=== PATIENT | female | born 1975 | race Caucasian/White ===

== ENCOUNTER 2023-06-19 23:21 | Observation (INO) | payer MEDICARE ==
[~2023-06-19 23:21] MED LIST: Sodium Chloride 0.9% 1000 ML 1,000 ML IV SCH
[2023-06-19] MEDS ORDERED: Adenocard IV 6 MG/2 ML IV ONE ×2 (23:35→23:38)
[2023-06-19] MEDS ORDERED: Sodium Chloride 0.9% 1000 ML 1,000 ML ONE (23:39)
[2023-06-19] MEDS ORDERED: Sodium Chloride 0.9% 1000 ML 1,000 ML IV SCH (23:40)
--- NOTE | 2023-06-19 23:43 | ERPHSYRPT ---
- History of Present Illness Historian: patient Exam Limitations: no limitations Patient Subjective Stated Complaint: C/O Chest pain that started approx 90 minutes prior to coming into the ER while cleaning up cat vomit at home. Triage Nursing Assessment: Patient brought back to ER in a W/C. She is alert and oriented; calm. No SOB. Rapid heart rate; SVT. Skin tone normal. Valsal. Manuever attempted with some success but SVT returned. Dr. Hand at bedside and attempted carotid massage. No edema. Physician History: , 06/19/23 11:35 PM 48 years old female past medical history of hypertension, asthma, tobacco use, seizure disorder, spina bifida. Intermittent palpitations. The patient is presenting to the emergency room complaining of central chest pain as pressure and her heart beating fast. This happened almost 90 minutes prior to arrival to the emergency room while the patient was trying to clean and a cat vomitus at home. The patient stated that this has happened couple of times in the past, when she would develop palpitations chest pain. The patient states that usually her palpitations will resolve spontaneously but not at this time. She denies any other complaint of chest pain does not radiate mostly in her chest. No lc rtness of breath, no abdominal pain nausea or vomiting. Activities at Onset: activity Quality: pressure Location: central Chest Pain Radiation: no radiation Severity of Pain-Max: mild Severity of Pain-Current: mild Modifying Factors: Improves With: nothing Associated Symptoms: palpitations Prior Chest Pain/Cardiac Workup: no prior cardiac workup Nitro Today/Relief: no nitro taken today Aspirin Treatment Today: 81 mg x 4, provided by ED Allergies/Adverse Reactions: cephalexin monohydrate [From Keflex] Allergy (Mild, Verified 06/19/23 23:23) Blisters clindamycin Allergy (Mild, Verified 06/19/23 23:23) Blisters Penicillins Allergy (Mild, Verified 06/19/23 23:23) Blisters nitrofurantoin [From Furadantin] Allergy (Verified 06/19/23 23:23) morphine Adverse Reaction (Intermediate, Verified 06/19/23 23:23) Headache Home Medications: lisinopriL [Lisinopril] 20 mg PO DAILY 09/07/14 [History] Hx Tetanus, Diphtheria Vaccination/Date Given: Yes Hx Influenza Vaccination/Date Given: No Hx Pneumococcal Vaccination/Date Given: No Immunizations Up to Date: Yes Travel Risk - International Travel Have you traveled outside of the country in past 3 weeks: No - Coronavirus Screening Are you exhibiting any of the following symptoms?: Yes Symptoms: Shortness of Breath Close contact with a COVID-19 positive Pt in past 14-21 Days: No - Vaccine Status Have you recieved a Covid-19 vaccination: Yes Sensitized Paper Tester: Moderna - Vaccination Dates Date of 2cond Vaccination (if applicable): 06/2020 - Past Medical History Pertinent Past Medical History: Yes Neurological History: Migraines, Seizures ENT History: No Pertinent History Cardiac History: Hypertension Respiratory History: Asthma Endocrine Medical History: No Pertinent History Musculoskeletal History: No Pertinent History GI Medical History: Other, Hepatitis, Cirrhosis History: Other Psycho-Social History: Depression Female Reproductive Disorders: Other Other Medical History: 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 WHICH LED TO TOTAL HYSTERECTOMY ET 10% OF STOMACHE LEFT, NEUROGENIC BLADDER ET BOWEL, SPINA BIFIDA - Past Surgical History Past Surgical History: Yes Neuro Surgical History: No Pertinent History Cardiac: No Pertinent History Respiratory: No Pertinent History Gastrointestinal: Bowel Surgery Genitourinary: Other Musculoskeletal: No Pertinent History Female Surgical History: Hysterectomy, Section Other Surgical History: tumor removal, Iliostomy, gastric bypass - Social History Smoking Status: Current every day smoker How long have you smoked: 30 years Exposure to second hand smoke: Yes Drug Use: marijuana Patient Lives Alone: No - Female History Hx Last Menstrual Period: No longer has them Hx Now: No - Nursing Vital Signs Nursing Vital Signs: Initial Vital Signs Temperature 98 F 06/19/23 23:24 Pulse Rate 172 H 06/19/23 23:24 Respiratory Rate 18 06/19/23 23:24 Blood Pressure 126/103 06/19/23 23:24 O2 Sat by Pulse Oximetry 99 06/19/23 23:24 Pain Scale Pain Intensity 0 - Physical Exam SpO2: 99 - Course Nursing assessment & vital signs reviewed: Yes EKG Interpreted by Me: RATE (174), SVT, Other (ST depressions , II, III, F, V4, V5) - Radiology Exams Chest X-ray Interpretation: Interpreted by me, Other (COPD) Ordered Tests: Active Orders 24 hr Category Date Time Status Nurse Educator STAT Care 06/19/23 23:36 Active EKG-ER Only STAT Care 06/19/23 23:35 Active IV Insertion STAT Care 06/19/23 23:35 Active CHEST 1 VIEW (PORTABLE) Stat Exams 06/19/23 23:35 Taken CHEST WITH CONTRAST [CT] Stat Exams 06/20/23 00:40 Completed CBC W DIFF Stat Lab 06/19/23 23:42 Completed CMP Stat Lab 06/19/23 23:42 Completed D-DIMER QUANTITATIVE Stat Lab 06/19/23 23:42 Completed MAGNESIUM Stat Lab 06/19/23 23:42 Completed PROTIME WITH INR Stat Lab 06/19/23 23:42 Completed PTT Stat Lab 06/19/23 23:42 Completed TROPONIN Q4H Lab 06/19/23 23:42 Completed TROPONIN Q4H Lab 06/20/23 01:53 Completed TROPONIN Q4H Lab 06/20/23 03:48 Completed TROPONIN Q4H Lab 06/20/23 06:45 Ordered TROPONIN Q4H Lab 06/20/23 10:45 Ordered TROPONIN Q4H Lab 06/20/23 14:45 Ordered TROPONIN Q4H Lab 06/20/23 18:45 Ordered TSH [TSH, 3RD Generation] Stat Lab 06/19/23 23:42 Completed Medication Summary Discontinued Medications Generic Name Dose Route Start Last Admin Trade Name Freq PRN Reason Stop Dose Admin Adenosine Confirm 06/19/23 23:35 Adenosine 6 Mg/2 Ml Vial Administered 06/19/23 23:36 Dose 18 mg IV .STK-MED ONE Adenosine 6 mg 06/19/23 23:38 06/19/23 23:40 Adenosine 6 Mg/2 Ml Vial IV 06/19/23 23:39 6 mg STAT ONE Administration Aspirin 324 mg 06/20/23 04:45 06/20/23 04:46 Aspirin 81 Mg Tab.Chew PO 06/20/23 04:46 324 mg STAT ONE Administration Aspirin Confirm 06/20/23 04:43 Aspirin 81 Mg Tab.Chew Administered 06/20/23 04:44 Dose 324 mg .ROUTE .STK-MED ONE Sodium Chloride Confirm 06/19/23 23:39 Sodium Chloride 0.9% 1000 Ml Administered 06/19/23 23:40 Dose 1,000 mls @ ud .ROUTE .STK-MED ONE Lisinopril 20 mg 06/20/23 06:01 Lisinopril 20 Mg Tablet PO 06/20/23 06:02 STAT ONE Lab/Rad Data: Laboratory Result Diagrams 06/19/23 23:42 06/19/23 23:42 Laboratory Results 06/20/23 06/20/23 06/19/23 Range/Units 03:48 01:53 23:42 WBC (4.0-10.5) x10^3/uL RBC (4.1-5.4) x10^6/uL Hgb (12.0-16.0) g/dL Hct (35-47) % MCV (78-100) fL MCH (26-32) pg MCHC (32-36) g/dL RDW (11.5-14.0) % Plt Count (150-450) x10^3/uL MPV (7.5-11.0) fL Gran % (36.0-66.0) % Immature Gran % (Auto) (0.00-0.4) % Nucleat RBC Rel Count (0.00-0.1) % Eos # (Auto) (0-0.5) x10^3/uL Immature Gran # (Auto) (0.00-0.03) x10^3u/L Absolute Lymphs (auto) (1.0-4.6) x10^3/uL Absolute Monos (auto) (0.0-1.3) x10^3/uL Absolute Nucleated RBC (0.00-0.01) x10^3u/L Lymphocytes % (24.0-44.0) % Monocytes % (0.0-12.0) % Eosinophils % (0.00-5.0) % Basophils % (0.0-0.4) % Absolute Granulocytes (1.4-6.9) x10^3/uL Basophils # (0-0.4) x10^3/uL PT (9.4-12.5) SECONDS INR (0.8-3.0) APTT (25.1-36.5) SECONDS D-Dimer (0.0-0.50) mg/L Sodium (137-145) mmol/L Potassium (3.5-5.1) mmol/L Chloride (98-107) mmol/L Carbon Dioxide (22-30) mmol/L Anion Gap (5-15) MEQ/L BUN (7-17) mg/dL Creatinine (0.52-1.04) mg/dL Estimated GFR ML/MIN Glucose (74-106) mg/dL Calcium (8.4-10.2) mg/dL Magnesium (1.6-2.3) mg/dL Total Bilirubin (0.2-1.3) mg/dL AST (14-36) U/L ALT (0-35) U/L Alkaline Phosphatase (38-126) U/L Troponin I 0.058 H* 0.039 H* (0.000-0.034) ng/mL Serum Total Protein (6.3-8.2) g/dL Albumin (3.5-5.0) g/dL TSH 3rd Generation 2.940 (0.47-4.68) mIU/L 06/19/23 06/19/23 06/19/23 Range/Units 23:42 23:42 23:42 WBC (4.0-10.5) x10^3/uL RBC (4.1-5.4) x10^6/uL Hgb (12.0-16.0) g/dL Hct (35-47) % MCV (78-100) fL MCH (26-32) pg MCHC (32-36) g/dL RDW (11.5-14.0) % Plt Count (150-450) x10^3/uL MPV (7.5-11.0) fL Gran % (36.0-66.0) % Immature Gran % (Auto) (0.00-0.4) % Nucleat RBC Rel Count (0.00-0.1) % Eos # (Auto) (0-0.5) x10^3/uL Immature Gran # (Auto) (0.00-0.03) x10^3u/L Absolute Lymphs (auto) (1.0-4.6) x10^3/uL Absolute Monos (auto) (0.0-1.3) x10^3/uL Absolute Nucleated RBC (0.00-0.01) x10^3u/L Lymphocytes % (24.0-44.0) % Monocytes % (0.0-12.0) % Eosinophils % (0.00-5.0) % Basophils % (0.0-0.4) % Absolute Granulocytes (1.4-6.9) x10^3/uL Basophils # (0-0.4) x10^3/uL PT 9.8 (9.4-12.5) SECONDS INR 0.89 (0.8-3.0) APTT 27.1 (25.1-36.5) SECONDS D-Dimer 0.56 H (0.0-0.50) mg/L Sodium 136 L (137-145) mmol/L Potassium 4.1 (3.5-5.1) mmol/L Chloride 108 H (98-107) mmol/L Carbon Dioxide 23 (22-30) mmol/L Anion Gap 10.4 (5-15) MEQ/L BUN 17 (7-17) mg/dL Creatinine 0.77 (0.52-1.04) mg/dL Estimated GFR 95.1 ML/MIN Glucose 134 H (74-106) mg/dL Calcium 9.2 (8.4-10.2) mg/dL Magnesium 2.1 (1.6-2.3) mg/dL Total Bilirubin 0.30 (0.2-1.3) mg/dL AST 60 H (14-36) U/L ALT 36 H (0-35) U/L Alkaline Phosphatase 124 (38-126) U/L Troponin I < 0.012 (0.000-0.034) ng/mL Serum Total Protein 7.6 (6.3-8.2) g/dL Albumin 4.2 (3.5-5.0) g/dL TSH 3rd Generation (0.47-4.68) mIU/L 06/19/23 Range/Units 23:42 WBC 10.4 (4.0-10.5) x10^3/uL RBC 4.98 (4.1-5.4) x10^6/uL Hgb 12.2 (12.0-16.0) g/dL Hct 41.5 (35-47) % MCV 83.3 (78-100) fL MCH 24.5 L (26-32) pg MCHC 29.4 L (32-36) g/dL RDW 16.4 H (11.5-14.0) % Plt Count 360 (150-450) x10^3/uL MPV 8.9 (7.5-11.0) fL Gran % 64.4 (36.0-66.0) % Immature Gran % (Auto) 0.3 (0.00-0.4) % Nucleat RBC Rel Count 0.0 (0.00-0.1) % Eos # (Auto) 0.16 (0-0.5) x10^3/uL Immature Gran # (Auto) 0.03 (0.00-0.03) x10^3u/L Absolute Lymphs (auto) 2.42 (1.0-4.6) x10^3/uL Absolute Monos (auto) 1.04 (0.0-1.3) x10^3/uL Absolute Nucleated RBC 0.00 (0.00-0.01) x10^3u/L Lymphocytes % 23.2 L (24.0-44.0) % Monocytes % 10.0 (0.0-12.0) % Eosinophils % 1.5 (0.00-5.0) % Basophils % 0.6 (0.0-0.4) % Absolute Granulocytes 6.71 (1.4-6.9) x10^3/uL Basophils # 0.06 (0-0.4) x10^3/uL PT (9.4-12.5) SECONDS INR (0.8-3.0) APTT (25.1-36.5) SECONDS D-Dimer (0.0-0.50) mg/L Sodium (137-145) mmol/L Potassium (3.5-5.1) mmol/L Chloride (98-107) mmol/L Carbon Dioxide (22-30) mmol/L Anion Gap (5-15) MEQ/L BUN (7-17) mg/dL Creatinine (0.52-1.04) mg/dL Estimated GFR ML/MIN Glucose (74-106) mg/dL Calcium (8.4-10.2) mg/dL Magnesium (1.6-2.3) mg/dL Total Bilirubin (0.2-1.3) mg/dL AST (14-36) U/L ALT (0-35) U/L Alkaline Phosphatase (38-126) U/L Troponin I (0.000-0.034) ng/mL Serum Total Protein (6.3-8.2) g/dL Albumin (3.5-5.0) g/dL TSH 3rd Generation (0.47-4.68) mIU/L - Progress Progress: improved Progress Note: 06/19/23 23:35 Emergency room course and medical decision making. The patient had an EKG on arrival which revealed SVT at a rate of [address] depressions in the inferior and lateral leads. Will check CBC, CMP, magnesium, portable chest x-ray and TSH. Will try to attempt to slow the patient heart rate with vagal maneuver, Valsalva maneuver, both did not seem to resolve her palpitations. The patient will be given a trial of IV Adenosine. 11:40 PM The patient verbally consented to the IV Adenosine, and she is aware that this medication with probably stop her heart and slow it down back to sinus rhythm. 6 mg of IV adenosine followed by 0.9 saline bolus was given. The patient's heart rate went down from 174 bpm to 103 sinus tachycardia. The patient felt better immediately. EKG post procedure revealed sinus tachycardia 103 bpm she had some minimal ST depression in the inferior leads and lat 06/20/23 00:40 The patient is asleep not in any distress, her heart rate is in the upper 80s to mid 90s sinus rhythm. Troponin less than 0.012. D-dimer mildly elevated 0.56. Normal TSH at 2.9 Normal potassium at 4.1 normal magnesium at 2.1. Will order CT of the chest rule out PE. Repeat troponin in 3 hours. 2:45 AM The patient is sleeping, have repeated second troponin is up to 0.039. Will repeat a third troponin 2 hours from the second 1. 06/20/23 04:46 The patient's third troponin is higher at 0.058. Her EKG is sinus rhythm 80 bpm, no ST segment elevation or depression. Will consult with cardiology in regard to the troponin elevation. The patient be given 4 baby aspirin's. The case is discussed with the garden center manager, Dr. Mcgrath, his recommendation is to have the patient be admitted to our facility for further observation. The case will be discussed with the hospitalist. 06/20/23 06:05 The case is discussed with the hospitalist, Dr. Hernandez and the patient has been accepted. She will be admitted for SVT Elevated Troponin. Observation Telemetry. 06/20/23 06:[address] Other (Dr. Mcgrath. Cardiology) Counseled pt/family regarding: lab results, diagnosis, rad results, smoking cessation - Departure Departure Disposition: Observation Clinical Impression: SVT (supraventricular tachycardia), Chest pain, Elevated troponin level Condition: Stable Critical Care Time: Yes Critical Care Time(excluding separately billable procedures): Critical 75-104 mins Referrals: JULI MONAHAN MD [Primary Care Provider] - Follow up/PCP as directed
[2023-06-19 23:45] LABS: Absolute Neutrophil Ct (ANC) 6.71 x10^3/uL (1.4-6.9); BASOPHIL % 0.6 % (0.0-0.4); Basophil (Absolute #) 0.06 x10^3/uL (0-0.4); Eosinophil % 1.5 % (0.00-5.0); Eosinophil (Absolute #) 0.16 x10^3/uL (0-0.5); Hematocrit 41.5 % (35-47); Hemoglobin 12.2 g/dL (12.0-16.0); IMMATURE GRAN # 0.03 x10^3u/L (0.00-0.03); IMMATURE GRAN % 0.3 % (0.00-0.4); Lymphocyte (Absolute #) 2.42 x10^3/uL (1.0-4.6); Lymphocytes % 23.2 % (24.0-44.0); Mean Cell Volume 83.3 fL (78-100); Mean Corpuscular Hemoglobin 24.5 pg (26-32); Mean Corpuscular Hgb Concent. 29.4 g/dL (32-36); Mean Platelet Volume 8.9 fL (7.5-11.0); Monocyte (Absolute #) 1.04 x10^3/uL (0.0-1.3); Neutrophil % 64.4 % (36.0-66.0); Platelet Count 360 x10^3/uL (150-450); Red Blood Count 4.98 x10^6/uL (4.1-5.4); Red Cell Distribution Width 16.4 % (11.5-14.0); White Blood Count 10.4 x10^3/uL (4.0-10.5)
[2023-06-20 00:01] LABS: ALBUMIN 4.2 g/dL (3.5-5.0); ANION GAP 10.4 MEQ/L (5-15); BILIRUBIN,TOTAL 0.3 mg/dL (0.2-1.3); Calcium 9.2 mg/dL (8.4-10.2); Creatinine 1 0.77 mg/dL (0.52-1.04); D-DIMER QUANTITATIVE 0.56 mg/L (0.0-0.50); EST GLOMERULAR FILTRATION RATE 95.1 ML/MIN; INR 0.89 (0.8-3.0); MAGNESIUM 2.1 mg/dL (1.6-2.3); PROTIME 9.8 SECONDS (9.4-12.5); PTT 27.1 SECONDS (25.1-36.5); Potassium 4.1 mmol/L (3.5-5.1); Total Protein 7.6 g/dL (6.3-8.2)
--- NOTE | 2023-06-20 01:37 | XRAY ---
CLINICAL HISTORY:PE COMPARISON:None TECHNIQUE:Contiguous axial images were obtained from the neck base through the upper abdomen following intravenous administration of contrast material. If IV contrast material had not been administered, the likelihood of detecting abnormalities relevant to the patient's condition would have been substantially decreased. In addition, sagittal and coronal reconstructions were performed. CT scan was performed according to ALARA (as low as reasonable achievable). ? FINDINGS: The lungs are clear, with no focal areas of consolidation. No pulmonary nodules are seen. The central airways are patent. There are no pleural effusions. No pneumothorax is seen. No axillary, hilar, or mediastinal adenopathy is identified. The visualized thyroid is unremarkable. The heart, aorta, and pulmonary arteries are of normal size and configuration. No filling defect or embolism. No pericardial effusion is identified. Imaged portions of the upper abdomen are unremarkable. No aggressive appearing osseous lesions are identified. IMPRESSION: 1. No evidence of pulmonary embolism or pulmonary disease. Electronically Signed by: Dr. Freeman Fisher MD. (06/20/2023 01:33:03 EST)
[2023-06-20] MEDS ORDERED: BABY ASPIRIN 81 MG CHEW ONE (04:43)
[2023-06-20] MEDS ORDERED: BABY ASPIRIN 81 MG CHEW PO ONE (04:45)
[2023-06-20] MEDS ORDERED: Zestril 20 MG PO ONE (06:01)
--- NOTE | 2023-06-20 08:44 | XRAY ---
Indication: Chest pain. Comparison: March 09, 2016 Portable chest again hyperinflated and clear. Heart not enlarged. Bony thorax intact. No new/acute findings.
--- NOTE | 2023-06-20 09:34 | PCM.HP ---
<RAGHAVENDRA JANG - Last Filed: 06/20/23 13:30> History of Present Illness - Chief Complaint Chief Complaint: SVT Date: 06/20/23 History of Present Illness: is a 48 year old female with a pmhx of HTN, asthma, smoker, hypothyroidism, emphysema, and spina bifida(ileostomy/presented to ED 06/20/23 with complaints of palpitations and "racing heartbeat." Patient reports she was in her usual state of health until last night around 900 pm when she noticed her heart felt like it was racing. She had been cleaning prior and tried to rest but the racing sensation persisted and prompted her to present to ED. She denies CP but endorses some jaw pain and headache. Patient also reports burning her right buttock with heating pad. She states the wound has some drainage. Upon inspection wound is quarter-sized, no exudate noted, and minimal erythema surrounding. Patient does self-cath and has ileostomy. Denies fever,cough, sob, cp, abdominal pain, HOLT, dizziness, N/V/D. In ED, patient afebrile, tachycardic with HR 172, normotensive, and spo2 @99% on RA. Chest CT with no evidence of PE or pulmonary disease. Initial EKG demonstrating SVT at a rate of [address] depressions in the inferior and lateral leads. Valsalva maneuver was attempted and unsuccessful, Adenosine given and converted to NS. Labs unremarkable with the exception of uptrending troponins 0.062<0.058<0.039. - Review of Systems Constitutional: No Symptoms Eyes: No Symptoms Ears, Nose, & Throat: No Symptoms Respiratory: No Symptoms Cardiac: Palpitations, Other ("racing heart") Abdominal/Gastrointestinal: No Symptoms, Other (ileostomy) Genitourinary Symptoms: No Symptoms, Other (Patient self-caths) Musculoskeletal: No Symptoms Skin: Other (quarter sized wound to right buttock) Neurological: Other (numbness/tingling due to spina bifida) Psychological: No Symptoms Endocrine: No Symptoms Hematologic/Lymphatic: No Symptoms Immunological/Allergic: No Symptoms Medications & Allergies Home Medications: Home Medication List lisinopriL [Lisinopril] 20 mg PO DAILY 09/07/14 [History Confirmed 06/20/23] Allergies/Adverse Reactions: Allergies Allergy/AdvReac Type Severity Reaction Status Date / Time cephalexin monohydrate Allergy Mild Blisters Verified 06/19/23 23:23 [From Keflex] clindamycin Allergy Mild Blisters Verified 06/19/23 23:23 Penicillins Allergy Mild Blisters Verified 06/19/23 23:23 nitrofurantoin Allergy Verified 06/19/23 23:23 [From Furadantin] morphine AdvReac Intermediate Headache Verified 06/19/23 23:23 - Past Medical History Past Medical History: Yes Neurological History: Migraines, Seizures ENT History: No Pertinent History Cardiac History: Hypertension Respiratory History: Asthma Endocrine Medical History: No Pertinent History Musculoskelatal History: No Pertinent History GI Medical History: Other, Hepatitis, Cirrhosis History: Other Pyscho-Social History: Depression Reproductive Disorders: Other Comment: 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 WHICH LED TO TOTAL HYSTERECTOMY ET 10% OF STOMACHE LEFT, NEUROGENIC BLADDER ET BOWEL, SPINA BIFIDA - Female History Hx Last Menstrual Period: No longer has them Are you now?: No - Past Surgical History Past Surgical History: Yes Neuro Surgical History: No Pertinent History Cardiac History: No Pertinent History Respiratory Surgery: No Pertinent History GI Surgical History: Bowel Surgery Genitourinary Surgical Hx: Other Musculskeletal Surgical Hx: No Pertinent History Female Surgical History: Hysterectomy, Section Other Surgical History: tumor removal, Iliostomy, gastric bypass - Social History Smoking Status: Current every day smoker How long have you smoked: 30 years Exposure to second hand smoke: Yes Alcohol: None Drug Use: marijuana - Physical Exam Vital Signs: Vital Signs - 24 hr Temp Pulse Resp BP BP Pulse Ox 06/20/23 08:30 97.1 F 82 18 168/91 97 06/20/23 08:25 97.1 F 97 H 18 168/91 97 06/20/23 08:00 77 18 141/95 96 06/20/23 07:45 73 20 190/106 96 06/20/23 07:30 91 H 15 163/100 97 06/20/23 07:15 76 18 153/98 96 06/20/23 07:00 76 20 150/93 96 06/20/23 06:45 75 20 166/97 97 06/20/23 06:30 74 21 154/109 96 06/20/23 06:15 85 18 164/101 97 06/20/23 06:12 99 06/20/23 06:01 73 11 L 172/101 100 06/20/23 05:45 76 20 144/102 100 06/20/23 05:31 78 11 L 146/99 99 06/20/23 05:15 81 24 128/81 99 06/20/23 05:00 77 14 140/97 06/20/23 04:45 81 11 L 163/105 100 06/20/23 04:30 72 15 133/98 99 06/20/23 04:15 71 20 145/89 06/20/23 04:06 71 14 155/93 100 06/20/23 03:45 79 19 152/100 100 06/20/23 03:30 73 16 140/99 100 06/20/23 03:15 73 21 146/94 97 06/20/23 03:00 101 H 15 140/99 99 06/20/23 02:45 73 18 144/99 98 06/20/23 02:30 78 19 126/76 96 06/20/23 02:15 83 19 109/75 96 06/20/23 02:00 83 19 115/74 96 06/20/23 01:45 83 18 124/84 97 06/20/23 01:30 83 20 127/86 97 06/20/23 01:15 88 21 125/79 96 06/20/23 01:08 89 22 126/83 97 06/20/23 00:45 127/95 06/20/23 00:30 99 H 22 125/96 96 06/20/23 00:15 98 H 20 128/95 96 06/20/23 00:00 99 H 22 128/96 95 06/19/23 23:44 100 H 20 148/101 97 06/19/23 23:39 179 H 17 146/101 100 06/19/23 23:24 98 F 172 H 18 126/103 99 General Appearance: no apparent distress Neurologic Exam: alert, oriented x 3, cooperative Eye Exam: PERRL/EOMI Ears, Nose, Throat Exam: normal ENT inspection Neck Exam: normal inspection Respiratory Exam: normal breath sounds, lungs clear Cardiovascular Exam: regular rate/rhythm, normal heart sounds Gastrointestinal/Abdomen Exam: soft, normal bowel sounds Pelvic Exam: not done Rectal Exam: deferred Back Exam: normal inspection Extremity Exam: normal inspection Skin Exam: other (quarter sized wound with surrounding erythema) Results - Labs Lab/Micro Results: Lab Results-Last 24 Hours 06/19/23 06/19/23 06/19/23 Range/Units 23:42 23:42 23:42 WBC 10.4 (4.0-10.5) x10^3/uL RBC 4.98 (4.1-5.4) x10^6/uL Hgb 12.2 (12.0-16.0) g/dL Hct 41.5 (35-47) % MCV 83.3 (78-100) fL MCH 24.5 L (26-32) pg MCHC 29.4 L (32-36) g/dL RDW 16.4 H (11.5-14.0) % Plt Count 360 (150-450) x10^3/uL MPV 8.9 (7.5-11.0) fL Gran % 64.4 (36.0-66.0) % Immature Gran % (Auto) 0.3 (0.00-0.4) % Nucleat RBC Rel Count 0.0 (0.00-0.1) % Eos # (Auto) 0.16 (0-0.5) x10^3/uL Immature Gran # (Auto) 0.03 (0.00-0.03) x10^3u/L Absolute Lymphs (auto) 2.42 (1.0-4.6) x10^3/uL Absolute Monos (auto) 1.04 (0.0-1.3) x10^3/uL Absolute Nucleated RBC 0.00 (0.00-0.01) x10^3u/L Lymphocytes % 23.2 L (24.0-44.0) % Monocytes % 10.0 (0.0-12.0) % Eosinophils % 1.5 (0.00-5.0) % Basophils % 0.6 (0.0-0.4) % Absolute Granulocytes 6.71 (1.4-6.9) x10^3/uL Basophils # 0.06 (0-0.4) x10^3/uL PT 9.8 (9.4-12.5) SECONDS INR 0.89 (0.8-3.0) APTT 27.1 (25.1-36.5) SECONDS D-Dimer 0.56 H (0.0-0.50) mg/L Sodium 136 L (137-145) mmol/L Potassium 4.1 (3.5-5.1) mmol/L Chloride 108 H (98-107) mmol/L Carbon Dioxide 23 (22-30) mmol/L Anion Gap 10.4 (5-15) MEQ/L BUN 17 (7-17) mg/dL Creatinine 0.77 (0.52-1.04) mg/dL Estimated GFR 95.1 ML/MIN Glucose 134 H (74-106) mg/dL Calcium 9.2 (8.4-10.2) mg/dL Magnesium 2.1 (1.6-2.3) mg/dL Total Bilirubin 0.30 (0.2-1.3) mg/dL AST 60 H (14-36) U/L ALT 36 H (0-35) U/L Alkaline Phosphatase 124 (38-126) U/L Troponin I (0.000-0.034) ng/mL Serum Total Protein 7.6 (6.3-8.2) g/dL Albumin 4.2 (3.5-5.0) g/dL TSH 3rd Generation (0.47-4.68) mIU/L 06/19/23 06/19/23 06/20/23 Range/Units 23:42 23:42 01:53 WBC (4.0-10.5) x10^3/uL RBC (4.1-5.4) x10^6/uL Hgb (12.0-16.0) g/dL Hct (35-47) % MCV (78-100) fL MCH (26-32) pg MCHC (32-36) g/dL RDW (11.5-14.0) % Plt Count (150-450) x10^3/uL MPV (7.5-11.0) fL Gran % (36.0-66.0) % Immature Gran % (Auto) (0.00-0.4) % Nucleat RBC Rel Count (0.00-0.1) % Eos # (Auto) (0-0.5) x10^3/uL Immature Gran # (Auto) (0.00-0.03) x10^3u/L Absolute Lymphs (auto) (1.0-4.6) x10^3/uL Absolute Monos (auto) (0.0-1.3) x10^3/uL Absolute Nucleated RBC (0.00-0.01) x10^3u/L Lymphocytes % (24.0-44.0) % Monocytes % (0.0-12.0) % Eosinophils % (0.00-5.0) % Basophils % (0.0-0.4) % Absolute Granulocytes (1.4-6.9) x10^3/uL Basophils # (0-0.4) x10^3/uL PT (9.4-12.5) SECONDS INR (0.8-3.0) APTT (25.1-36.5) SECONDS D-Dimer (0.0-0.50) mg/L Sodium (137-145) mmol/L Potassium (3.5-5.1) mmol/L Chloride (98-107) mmol/L Carbon Dioxide (22-30) mmol/L Anion Gap (5-15) MEQ/L BUN (7-17) mg/dL Creatinine (0.52-1.04) mg/dL Estimated GFR ML/MIN Glucose (74-106) mg/dL Calcium (8.4-10.2) mg/dL Magnesium (1.6-2.3) mg/dL Total Bilirubin (0.2-1.3) mg/dL AST (14-36) U/L ALT (0-35) U/L Alkaline Phosphatase (38-126) U/L Troponin I < 0.012 0.039 H* (0.000-0.034) ng/mL Serum Total Protein (6.3-8.2) g/dL Albumin (3.5-5.0) g/dL TSH 3rd Generation 2.940 (0.47-4.68) mIU/L 06/20/23 06/20/23 Range/Units 03:48 06:49 WBC (4.0-10.5) x10^3/uL RBC (4.1-5.4) x10^6/uL Hgb (12.0-16.0) g/dL Hct (35-47) % MCV (78-100) fL MCH (26-32) pg MCHC (32-36) g/dL RDW (11.5-14.0) % Plt Count (150-450) x10^3/uL MPV (7.5-11.0) fL Gran % (36.0-66.0) % Immature Gran % (Auto) (0.00-0.4) % Nucleat RBC Rel Count (0.00-0.1) % Eos # (Auto) (0-0.5) x10^3/uL Immature Gran # (Auto) (0.00-0.03) x10^3u/L Absolute Lymphs (auto) (1.0-4.6) x10^3/uL Absolute Monos (auto) (0.0-1.3) x10^3/uL Absolute Nucleated RBC (0.00-0.01) x10^3u/L Lymphocytes % (24.0-44.0) % Monocytes % (0.0-12.0) % Eosinophils % (0.00-5.0) % Basophils % (0.0-0.4) % Absolute Granulocytes (1.4-6.9) x10^3/uL Basophils # (0-0.4) x10^3/uL PT (9.4-12.5) SECONDS INR (0.8-3.0) APTT (25.1-36.5) SECONDS D-Dimer (0.0-0.50) mg/L Sodium (137-145) mmol/L Potassium (3.5-5.1) mmol/L Chloride (98-107) mmol/L Carbon Dioxide (22-30) mmol/L Anion Gap (5-15) MEQ/L BUN (7-17) mg/dL Creatinine (0.52-1.04) mg/dL Estimated GFR ML/MIN Glucose (74-106) mg/dL Calcium (8.4-10.2) mg/dL Magnesium (1.6-2.3) mg/dL Total Bilirubin (0.2-1.3) mg/dL AST (14-36) U/L ALT (0-35) U/L Alkaline Phosphatase (38-126) U/L Troponin I 0.058 H* 0.062 H* (0.000-0.034) ng/mL Serum Total Protein (6.3-8.2) g/dL Albumin (3.5-5.0) g/dL TSH 3rd Generation (0.47-4.68) mIU/L - Radiology Impressions Radiology Exams & Impressions: Radiology Procedures Category Date Time Status CHEST 1 VIEW (PORTABLE) Stat Exams 06/19/23 23:35 Completed CHEST WITH CONTRAST [CT] Stat Exams 06/20/23 00:40 Completed - Other Procedures and Tests Respiratory Therapy 06/20/23 09:11 Smoking Cessation Education ONCE 06/20/23 09:27 EKG ROUTINE Assessment/Plan (1) SVT (supraventricular tachycardia) Status: Acute Assessment & Plan: -EKG on arrival showing SVT, adenosine give with resolution, current EKG with NS -Cardiology to see patient today -TSH wnl Code(s): I47.10 - SUPRAVENTRICULAR TACHYCARDIA, UNSPECIFIED (2) Elevated troponin level Status: Acute Assessment & Plan: -Most likely secondary to SVT -EKG now NS no ST elevations/depressions, anterior infarct age indeterminate, p vcs -Cards consulted pending recs Code(s): R79.89 - OTHER SPECIFIED ABNORMAL FINDINGS OF BLOOD CHEMISTRY (3) Hypothyroid Status: Acute Assessment & Plan: -Patient states she is non-compliant with synthroid, TSH level WNL here, advised follow up with PCP Code(s): E03.9 - HYPOTHYROIDISM, UNSPECIFIED (4) Spina bifida Status: Acute Assessment & Plan: -Noted, adds complexity. With ileostomy, able to ambulate -Noted burn due to heating pad and loss of sensation to affected area Code(s): Q05.9 - SPINA BIFIDA, UNSPECIFIED (5) Hypertension Status: Acute Assessment & Plan: -Stable, continue home med lisinopril Code(s): I10 - ESSENTIAL (PRIMARY) HYPERTENSION (6) Wound of right buttock Status: Acute Assessment & Plan: 2/2 to burn from heating pad, patient states she has no sensation to this area -wound culture -Will treat with doxycycline/augmentin -patient does have allergy to PCN but states she is able to tolerate Augmentin Code(s): S31.819A - UNSPECIFIED OPEN WOUND OF RIGHT BUTTOCK, INITIAL ENCOUNTER <JEFF PERES - Last Filed: 06/20/23 21:21> History of Present Illness - Chief Complaint History of Present Illness: is a 48 year old female. - Physical Exam Vital Signs: Vital Signs - 24 hr Temp Pulse Resp BP BP Pulse Ox 06/20/23 16:00 97.3 F 78 17 146/97 99 06/20/23 12:00 97.3 F 92 H 16 152/86 97 06/20/23 09:39 92 H 16 97 06/20/23 08:30 97.1 F 82 18 168/91 97 06/20/23 08:25 97.1 F 97 H 18 168/91 97 06/20/23 08:00 77 18 141/95 96 06/20/23 07:45 73 20 190/106 96 06/20/23 07:30 91 H 15 163/100 97 06/20/23 07:15 76 18 153/98 96 06/20/23 07:00 76 20 150/93 96 06/20/23 06:45 75 20 166/97 97 06/20/23 06:30 74 21 154/109 96 06/20/23 06:15 85 18 164/101 97 06/20/23 06:12 99 06/20/23 06:01 73 11 L 172/101 100 06/20/23 05:45 76 20 144/102 100 06/20/23 05:31 78 11 L 146/99 99 06/20/23 05:15 81 24 128/81 99 06/20/23 05:00 77 14 140/97 06/20/23 04:45 81 11 L 163/105 100 06/20/23 04:30 72 15 133/98 99 06/20/23 04:15 71 20 145/89 06/20/23 04:06 71 14 155/93 100 06/20/23 03:45 79 19 152/100 100 06/20/23 03:30 73 16 140/99 100 06/20/23 03:15 73 21 146/94 97 06/20/23 03:00 101 H 15 140/99 99 06/20/23 02:45 73 18 144/99 98 06/20/23 02:30 78 19 126/76 96 06/20/23 02:15 83 19 109/75 96 06/20/23 02:00 83 19 115/74 96 06/20/23 01:45 83 18 124/84 97 06/20/23 01:30 83 20 127/86 97 06/20/23 01:15 88 21 125/79 96 06/20/23 01:08 89 22 126/83 97 06/20/23 00:45 127/95 06/20/23 00:30 99 H 22 125/96 96 06/20/23 00:15 98 H 20 128/95 96 06/20/23 00:00 99 H 22 128/96 95 06/19/23 23:44 100 H 20 148/101 97 06/19/23 23:39 179 H 17 146/101 100 06/19/23 23:24 98 F 172 H 18 126/103 99 Results - Labs Lab/Micro Results: Lab Results-Last 24 Hours 06/19/23 06/19/23 06/19/23 Range/Units 23:42 23:42 23:42 WBC 10.4 (4.0-10.5) x10^3/uL RBC 4.98 (4.1-5.4) x10^6/uL Hgb 12.2 (12.0-16.0) g/dL Hct 41.5 (35-47) % MCV 83.3 (78-100) fL MCH 24.5 L (26-32) pg MCHC 29.4 L (32-36) g/dL RDW 16.4 H (11.5-14.0) % Plt Count 360 (150-450) x10^3/uL MPV 8.9 (7.5-11.0) fL Gran % 64.4 (36.0-66.0) % Immature Gran % (Auto) 0.3 (0.00-0.4) % Nucleat RBC Rel Count 0.0 (0.00-0.1) % Eos # (Auto) 0.16 (0-0.5) x10^3/uL Immature Gran # (Auto) 0.03 (0.00-0.03) x10^3u/L Absolute Lymphs (auto) 2.42 (1.0-4.6) x10^3/uL Absolute Monos (auto) 1.04 (0.0-1.3) x10^3/uL Absolute Nucleated RBC 0.00 (0.00-0.01) x10^3u/L Lymphocytes % 23.2 L (24.0-44.0) % Monocytes % 10.0 (0.0-12.0) % Eosinophils % 1.5 (0.00-5.0) % Basophils % 0.6 (0.0-0.4) % Absolute Granulocytes 6.71 (1.4-6.9) x10^3/uL Basophils # 0.06 (0-0.4) x10^3/uL PT 9.8 (9.4-12.5) SECONDS INR 0.89 (0.8-3.0) APTT 27.1 (25.1-36.5) SECONDS D-Dimer 0.56 H (0.0-0.50) mg/L Sodium 136 L (137-145) mmol/L Potassium 4.1 (3.5-5.1) mmol/L Chloride 108 H (98-107) mmol/L Carbon Dioxide 23 (22-30) mmol/L Anion Gap 10.4 (5-15) MEQ/L BUN 17 (7-17) mg/dL Creatinine 0.77 (0.52-1.04) mg/dL Estimated GFR 95.1 ML/MIN Glucose 134 H (74-106) mg/dL Calcium 9.2 (8.4-10.2) mg/dL Magnesium 2.1 (1.6-2.3) mg/dL Total Bilirubin 0.30 (0.2-1.3) mg/dL AST 60 H (14-36) U/L ALT 36 H (0-35) U/L Alkaline Phosphatase 124 (38-126) U/L Troponin I (0.000-0.034) ng/mL Serum Total Protein 7.6 (6.3-8.2) g/dL Albumin 4.2 (3.5-5.0) g/dL TSH 3rd Generation (0.47-4.68) mIU/L 06/19/23 06/19/23 06/20/23 Range/Units 23:42 23:42 01:53 WBC (4.0-10.5) x10^3/uL RBC (4.1-5.4) x10^6/uL Hgb (12.0-16.0) g/dL Hct (35-47) % MCV (78-100) fL MCH (26-32) pg MCHC (32-36) g/dL RDW (11.5-14.0) % Plt Count (150-450) x10^3/uL MPV (7.5-11.0) fL Gran % (36.0-66.0) % Immature Gran % (Auto) (0.00-0.4) % Nucleat RBC Rel Count (0.00-0.1) % Eos # (Auto) (0-0.5) x10^3/uL Immature Gran # (Auto) (0.00-0.03) x10^3u/L Absolute Lymphs (auto) (1.0-4.6) x10^3/uL Absolute Monos (auto) (0.0-1.3) x10^3/uL Absolute Nucleated RBC (0.00-0.01) x10^3u/L Lymphocytes % (24.0-44.0) % Monocytes % (0.0-12.0) % Eosinophils % (0.00-5.0) % Basophils % (0.0-0.4) % Absolute Granulocytes (1.4-6.9) x10^3/uL Basophils # (0-0.4) x10^3/uL PT (9.4-12.5) SECONDS INR (0.8-3.0) APTT (25.1-36.5) SECONDS D-Dimer (0.0-0.50) mg/L Sodium (137-145) mmol/L Potassium (3.5-5.1) mmol/L Chloride (98-107) mmol/L Carbon Dioxide (22-30) mmol/L Anion Gap (5-15) MEQ/L BUN (7-17) mg/dL Creatinine (0.52-1.04) mg/dL Estimated GFR ML/MIN Glucose (74-106) mg/dL Calcium (8.4-10.2) mg/dL Magnesium (1.6-2.3) mg/dL Total Bilirubin (0.2-1.3) mg/dL AST (14-36) U/L ALT (0-35) U/L Alkaline Phosphatase (38-126) U/L Troponin I < 0.012 0.039 H* (0.000-0.034) ng/mL Serum Total Protein (6.3-8.2) g/dL Albumin (3.5-5.0) g/dL TSH 3rd Generation 2.940 (0.47-4.68) mIU/L 06/20/23 06/20/23 06/20/23 Range/Units 03:48 06:49 10:45 WBC (4.0-10.5) x10^3/uL RBC (4.1-5.4) x10^6/uL Hgb (12.0-16.0) g/dL Hct (35-47) % MCV (78-100) fL MCH (26-32) pg MCHC (32-36) g/dL RDW (11.5-14.0) % Plt Count (150-450) x10^3/uL MPV (7.5-11.0) fL Gran % (36.0-66.0) % Immature Gran % (Auto) (0.00-0.4) % Nucleat RBC Rel Count (0.00-0.1) % Eos # (Auto) (0-0.5) x10^3/uL Immature Gran # (Auto) (0.00-0.03) x10^3u/L Absolute Lymphs (auto) (1.0-4.6) x10^3/uL Absolute Monos (auto) (0.0-1.3) x10^3/uL Absolute Nucleated RBC (0.00-0.01) x10^3u/L Lymphocytes % (24.0-44.0) % Monocytes % (0.0-12.0) % Eosinophils % (0.00-5.0) % Basophils % (0.0-0.4) % Absolute Granulocytes (1.4-6.9) x10^3/uL Basophils # (0-0.4) x10^3/uL PT (9.4-12.5) SECONDS INR (0.8-3.0) APTT (25.1-36.5) SECONDS D-Dimer (0.0-0.50) mg/L Sodium (137-145) mmol/L Potassium (3.5-5.1) mmol/L Chloride (98-107) mmol/L Carbon Dioxide (22-30) mmol/L Anion Gap (5-15) MEQ/L BUN (7-17) mg/dL Creatinine (0.52-1.04) mg/dL Estimated GFR ML/MIN Glucose (74-106) mg/dL Calcium (8.4-10.2) mg/dL Magnesium (1.6-2.3) mg/dL Total Bilirubin (0.2-1.3) mg/dL AST (14-36) U/L ALT (0-35) U/L Alkaline Phosphatase (38-126) U/L Troponin I 0.058 H* 0.062 H* 0.051 H* (0.000-0.034) ng/mL Serum Total Protein (6.3-8.2) g/dL Albumin (3.5-5.0) g/dL TSH 3rd Generation (0.47-4.68) mIU/L 06/20/23 Range/Units 15:04 WBC (4.0-10.5) x10^3/uL RBC (4.1-5.4) x10^6/uL Hgb (12.0-16.0) g/dL Hct (35-47) % MCV (78-100) fL MCH (26-32) pg MCHC (32-36) g/dL RDW (11.5-14.0) % Plt Count (150-450) x10^3/uL MPV (7.5-11.0) fL Gran % (36.0-66.0) % Immature Gran % (Auto) (0.00-0.4) % Nucleat RBC Rel Count (0.00-0.1) % Eos # (Auto) (0-0.5) x10^3/uL Immature Gran # (Auto) (0.00-0.03) x10^3u/L Absolute Lymphs (auto) (1.0-4.6) x10^3/uL Absolute Monos (auto) (0.0-1.3) x10^3/uL Absolute Nucleated RBC (0.00-0.01) x10^3u/L Lymphocytes % (24.0-44.0) % Monocytes % (0.0-12.0) % Eosinophils % (0.00-5.0) % Basophils % (0.0-0.4) % Absolute Granulocytes (1.4-6.9) x10^3/uL Basophils # (0-0.4) x10^3/uL PT (9.4-12.5) SECONDS INR (0.8-3.0) APTT (25.1-36.5) SECONDS D-Dimer (0.0-0.50) mg/L Sodium (137-145) mmol/L Potassium (3.5-5.1) mmol/L Chloride (98-107) mmol/L Carbon Dioxide (22-30) mmol/L Anion Gap (5-15) MEQ/L BUN (7-17) mg/dL Creatinine (0.52-1.04) mg/dL Estimated GFR ML/MIN Glucose (74-106) mg/dL Calcium (8.4-10.2) mg/dL Magnesium (1.6-2.3) mg/dL Total Bilirubin (0.2-1.3) mg/dL AST (14-36) U/L ALT (0-35) U/L Alkaline Phosphatase (38-126) U/L Troponin I 0.037 H* (0.000-0.034) ng/mL Serum Total Protein (6.3-8.2) g/dL Albumin (3.5-5.0) g/dL TSH 3rd Generation (0.47-4.68) mIU/L - Radiology Impressions Radiology Exams & Impressions: Radiology Procedures Category Date Time Status CHEST 1 VIEW (PORTABLE) Stat Exams 06/19/23 23:35 Completed CHEST WITH CONTRAST [CT] Stat Exams 06/20/23 00:40 Completed ECHO W/2D AND DOPPLER [US] Routine Exams 06/20/23 11:52 Taken TA Encounter - TA Encounter Attestation TA Encounter Attestation: "JessicapersonallyseenandIZZY Tuttle andhavediscussed pertinent aspects of their care with Raghavendra Cardenas agree with the history, physical exam (any modifications based on my personal exam will be noted below), assessment, and plan as outlined in original note. Please see immediately below for my summary of findings and additional assessment and plan along with any meaningful corrections/explanations to the Subjective/Objective portions of the TA note will be noted." My portion of the encounter took place via telemedicine. -Patient seen today for SVT and positive trop. She was feeling well this morning however left AMA in the evening, pending cardiology evaluation
[2023-06-20] MEDS ORDERED: TYLENOL 325 MG PO PRN (09:39)
[2023-06-20] MEDS ORDERED: Zofran 4 MG/2 ML VIAL IV PRN (09:40)
[2023-06-20] MEDS ORDERED: ENOXAPARIN SODIUM SQ SCH (10:00)
[2023-06-20] MEDS ORDERED: Zestril 20 MG PO SCH (10:00)
[2023-06-20] MEDS ORDERED: Nicoderm CQ 21 MG TOP SCH (10:00)
[2023-06-20 13:06] VITALS: TEMP 97.3
[2023-06-20] MEDS ORDERED: Augmentin 875-125 Tablet PO SCH (14:00)
[2023-06-20] MEDS ORDERED: Vibramycin 100 MG PO SCH (14:00)
[2023-06-20 16:22] VITALS: BP 146/97; PULSE 78; RESP 17; O2SAT 99
[2023-06-20] MEDS ORDERED: SILVADENE 50 GM TP SCH (22:00)
== END 2023-06-20 18:00 | disposition left against medical advice (07) ==
LOC: ED 23:21 → MED SURG 06-20 08:21
PROVIDERS: ADMIT Internal Medicine; ATTEND Internal Medicine
DX: I47.10 Supraventricular tachycardia, unspecified (principal); R79.89 Other specified abnormal findings of blood chemistry; E03.9 Hypothyroidism, unspecified; Q05.9 Spina bifida, unspecified; I10 Essential (primary) hypertension; S31.819A Unspecified open wound of right buttock, initial encounter; F17.200 Nicotine dependence, unspecified, uncomplicated; Z79.899 Other long term (current) drug therapy; Z20.828 Contact with and (suspected) exposure to other viral communicable diseases
CPT/HCPCS: 36000; 36415; 71045; 71260; 80053; 83735; 84443; 84484; 85025; 85379; 85610; 85730; 93005; 93041; 93268; 93306; 96374; 99285; 99291; 99292; J0153; J1650; Q3014; A9270-GY; G0378

== ENCOUNTER 2024-02-12 01:29 | Observation (INO) | payer MEDICARE ==
[2024-02-12] MEDS ORDERED: Zofran 4 MG/2 ML VIAL ONE (02:41)
[2024-02-12] MEDS: Zofran 4 MG/2 ML VIAL IV ONE (02:42)
[2024-02-12] MEDS ORDERED: SUBLIMAZE 100 MCG/2 ML ONE (02:42)
[2024-02-12] MEDS ORDERED: Sodium Chloride 0.9% 1000 ML 1,000 ML ONE (02:42)
--- NOTE | 2024-02-12 02:42 | ERPHSYRPT ---
- History of Present Illness Time Seen by Provider: 02/12/24 02:26 Patient Subjective Stated Complaint: pt states that she thinks she has a uti. pt states she self cath Triage Nursing Assessment: pt came into the er via wheelchair; pt transfer self to cot; pt states 10/10 pain to abd; hypoactive bowel sounds in all quads; iliostomy to RLQ; skin PDW; no respiratory distress present; vitals wnl Physician History: 48 years old female with history of hypertension, seizure disorder, asthma/tobacco abuse, multiple abdominal surgeries with permanent ileostomy, spinal biopsy Presented in the ER with complaints of generalized abdominal pain more in the right side around the area of ileostomy for the last 2 to 3 days with progressive worsening. Reports no ileostomy diarrhea. Reports decreased oral intake, loss of appetite and 15 pounds weight loss in last 2 weeks which is not intentional. Having aches and pains all over. Minimal nonproductive cough at times. Denies any chest pain or palpitations. No fever or chills reported. Allergies/Adverse Reactions: cephalexin monohydrate [From Keflex] Allergy (Mild, Verified 02/12/24 07:07) Blisters clindamycin Allergy (Mild, Verified 02/12/24 07:07) Blisters Penicillins Allergy (Mild, Verified 02/12/24 07:07) Blisters nitrofurantoin [From Furadantin] Allergy (Verified 02/12/24 07:07) morphine Adverse Reaction (Intermediate, Verified 02/12/24 07:07) Headache Home Medications: lisinopriL [Lisinopril] 10 mg PO DAILY 09/07/14 [History] Ciprofloxacin HCl 500 mg PO BID 02/12/24 [History] Hydroxyzine HCl 25 mg [Atarax 25 mg] 25 mg PO Q8HPRN PRN 02/12/24 [History] Nitroglycerin 0.4 mg Tablet [Nitrostat 0.4 MG Tablet] 0.4 mg SL Q5MIN PRN MR X 3 PRN 02/12/24 [History] Hx Tetanus, Diphtheria Vaccination/Date Given: Yes Hx Influenza Vaccination/Date Given: No Hx Pneumococcal Vaccination/Date Given: No Travel Risk - International Travel Have you traveled outside of the country in past 3 weeks: No - Emerging Infectious Disease Are you exhibiting symptoms associated with any current EIDs: Yes Symptoms: Abdominal Pain - Review of Systems Constitutional: Fatigue, Weakness Eyes: No Symptoms Ears, Nose, & Throat: No Symptoms Respiratory: Cough Cardiac: No Symptoms Abdominal/Gastrointestinal: Abdominal Pain, Nausea Genitourinary Symptoms: No Symptoms Musculoskeletal: Arthralgias Skin: No Symptoms Neurological: No Symptoms Endocrine: No Symptoms Hematologic/Lymphatic: No Symptoms - Past Medical History Pertinent Past Medical History: Yes Neurological History: Migraines, Seizures ENT History: No Pertinent History Cardiac History: Hypertension Respiratory History: Asthma Endocrine Medical History: No Pertinent History Musculoskeletal History: No Pertinent History GI Medical History: Other, Hepatitis, Cirrhosis History: Other Psycho-Social History: Depression Female Reproductive Disorders: Other Other Medical History: 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 WHICH LED TO TOTAL HYSTERECTOMY ET 10% OF STOMACHE LEFT, NEUROGENIC BLADDER ET BOWEL, SPINA BIFIDA - Past Surgical History Past Surgical History: Yes Neuro Surgical History: No Pertinent History Cardiac: No Pertinent History Respiratory: No Pertinent History Gastrointestinal: Bowel Surgery Genitourinary: Other Musculoskeletal: No Pertinent History Female Surgical History: Hysterectomy, Section Other Surgical History: tumor removal, Iliostomy, gastric bypass - Female History Hx Last Menstrual Period: HYSTER Hx Now: No - Social History Smoking Status: Current every day smoker How long have you smoked: 30 years Exposure to second hand smoke: Yes Drug Use: marijuana Patient Lives Alone: No - Social Determinants of Health Will the patient participate in the screening: Yes Do you worry about a steady place to live?: No Do you have any problems with any of the following?: No known problems In the past 12 months,have you had to go without utilities?: No Transportation Issues: No Has anyone in your support network made you feel unsafe?: No Have you or anyone in your house had to go without enough: No - Nursing Vital Signs Nursing Vital Signs: Initial Vital Signs Blood Pressure 111/74 02/12/24 01:39 Pain Scale Pain Intensity 2 - Physical Exam General Appearance: no apparent distress, alert Eye Exam: PERRL/EOMI Ears, Nose, Throat Exam: normal ENT inspection (Attending) Neck Exam: normal inspection, supple, full range of motion Respiratory Exam: normal breath sounds, lungs clear Cardiovascular Exam: regular rate/rhythm, normal heart sounds (Follow-up pending. 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 Skin Exam: normal color SpO2 Interpretation: normal SpO2: 100 O2 Delivery: Room Air - Course EKG Interpreted by Me: RATE (82), Sinus Rhythm, NORMAL AXIS, Q-wave, Non- specific ST Changes Ordered Tests: Medication Summary Generic Name Dose Route Start Last Admin Trade Name Freq PRN Reason Stop Dose Admin Acetaminophen 325 mg 02/12/24 07:53 02/12/24 10:21 Acetaminophen 325 Mg Tablet PO 03/13/24 07:52 325 mg Q4H PRN PRN Administration PAIN, FEVER, HEADACHE Albuterol/Ipratropium 3 ml 02/12/24 14:44 Ipratropium/Albuterol Sulfate 3 Ml Ampul.Neb IH 03/13/24 14:43 Q4HPRN PRN SHORTNESS OF BREATH/WHEEZING Diphenoxylate HCl/Atropine 2 tablet 02/12/24 13:00 02/13/24 13:45 Diphenoxylate Hcl/Atropine 1 Tablet PO 03/13/24 12:59 2 tablet QID MAREK Administration Heparin Sodium (Beef Lung) 5,000 unit 02/12/24 10:00 02/13/24 10:07 Heparin 5000 Units/0.5 Ml 5,000 Unit/0.5 Ml Syr SQ 03/13/24 09:59 5,000 unit BID MAREK Administration Hydromorphone HCl 1 mg 02/12/24 11:02 02/13/24 09:58 Hydromorphone 1 Mg/1ml Inj IV 02/17/24 11:01 1 mg Q4H PRN PRN Administration PAIN Hydroxyzine HCl 25 mg 02/12/24 07:55 Hydroxyzine Hcl 25 Mg Tablet PO 03/13/24 07:54 Q8HPRN PRN ANXIETY Aztreonam 1 gm/ Sodium 100 mls @ 200 mls/hr 02/12/24 18:00 02/13/24 05:52 Chloride IV 02/15/24 17:59 200 mls/hr Q12H MAREK Administration Lactated Ringer's 1,000 mls @ 100 mls/hr 02/12/24 08:00 02/13/24 13:46 Lactated Ringers IV 03/13/24 07:59 100 mls/hr .Q10H MAREK Administration Ondansetron HCl 4 mg 02/12/24 07:49 02/12/24 10:54 Ondansetron Hcl 4 Mg/2 Ml Vial IV 03/13/24 07:48 4 mg Q6H PRN PRN Administration NAUSEA/VOMITING Pantoprazole Sodium 40 mg 02/12/24 10:00 02/13/24 10:07 Protonix (Pantoprazole) 40 Mg Tablet PO 03/13/24 09:59 40 mg DAILY MAREK Administration Discontinued Medications Generic Name Dose Route Start Last Admin Trade Name Freq PRN Reason Stop Dose Admin Albuterol/Ipratropium 3 ml 02/12/24 08:00 02/13/24 04:58 Ipratropium/Albuterol Sulfate 3 Ml Ampul.Neb IH 03/13/24 07:59 Not Given Q6HRT MAREK Aztreonam Confirm 02/12/24 05:16 Aztreonam 1 Gm Vial Administered 02/12/24 05:17 Dose 1 gm .ROUTE .STK-MED ONE Fentanyl Citrate 50 mcg 02/12/24 02:37 02/12/24 02:43 Fentanyl Citrate 100 Mcg/2 Ml* Vial IV 02/12/24 02:38 50 mcg STAT ONE Administration Fentanyl Citrate Confirm 02/12/24 02:42 Fentanyl Citrate 100 Mcg/2 Ml* Vial Administered 02/12/24 02:43 Dose 100 mcg .ROUTE .STK-MED ONE Sodium Chloride 1,000 mls @ 999 mls/hr 02/12/24 02:37 02/12/24 04:11 Sodium Chloride 0.9% 1000 Ml IV 02/12/24 03:37 Infused .Q1H1M STA Infusion Sodium Chloride Confirm 02/12/24 02:42 Sodium Chloride 0.9% 1000 Ml Administered 02/12/24 02:43 Dose 1,000 mls @ ud .ROUTE .STK-MED ONE Aztreonam 1 gm/ Sodium 100 mls @ 200 mls/hr 02/12/24 10:00 02/12/24 05:24 Chloride IV 02/15/24 09:59 200 mls/hr Q12HT MAREK Administration Sodium Chloride 1,000 mls @ 100 mls/hr 02/12/24 05:15 02/12/24 07:22 Sodium Chloride 0.9% 1000 Ml IV 03/13/24 05:14 100 mls/hr .Q10H MAREK Administration Sodium Chloride 500 mls @ 500 mls/hr 02/12/24 05:11 02/12/24 05:26 Sodium Chloride 0.9% 500 Ml IV 02/12/24 06:10 500 mls/hr .Q1H ONE Administration Sodium Chloride Confirm 02/12/24 05:18 Sodium Chloride 0.9% Administered 02/12/24 05:19 Dose 100 mls @ ud .ROUTE .STK-MED ONE Sodium Chloride Confirm 02/12/24 05:25 Sodium Chloride 100ml Mini-Bag Plus Administered 02/12/24 05:26 Dose 100 mls @ ud IV .STK-MED ONE Sodium Chloride Confirm 02/12/24 05:26 Sodium Chloride 0.9% 500 Ml Administered 02/12/24 05:27 Dose 500 mls @ ud IV .STK-MED ONE Ondansetron HCl 4 mg 02/12/24 02:37 02/12/24 02:42 Ondansetron Hcl 4 Mg/2 Ml Vial IV 02/12/24 02:38 4 mg STAT ONE Administration Ondansetron HCl Confirm 02/12/24 02:41 Ondansetron Hcl 4 Mg/2 Ml Vial Administered 02/12/24 02:42 Dose 4 mg .ROUTE .STK-MED ONE Potassium Chloride 20 meq 02/12/24 08:00 02/12/24 16:20 Potassium Chloride Tab 10 Meq Tab PO 02/12/24 14:01 20 meq Q2H MAREK Administration Lab/Rad Data: Laboratory Result Diagrams 02/12/24 02:52 02/12/24 02:52 Laboratory Results 02/12/24 02/12/24 02/12/24 Range/Units 03:20 02:52 02:52 WBC (3.98-10.04) x10^3/uL RBC (3.93-5.22) x10^6/uL Hgb (11.2-15.7) g/dL Hct (34.1-44.9) % MCV (79.4-94.8) fL MCH (25.6-32.2) pg MCHC (32.2-35.5) g/dL RDW (11.7-14.4) % Plt Count (182-369) x10^3/uL MPV (9.4-12.3) fL Gran % (34.0-71.1) % Immature Gran % (Auto) (0.001-0.429) % Nucleat RBC Rel Count (0.00-0.2) % Eos # (Auto) (0.04-0.36) x10^3/uL Immature Gran # (Auto) (0.001-0.031) x10^3u/L Absolute Lymphs (auto) (1.18-3.74) x10^3/uL Absolute Monos (auto) (0.24-0.86) x10^3/uL Absolute Nucleated RBC (0.00-0.012) x10^3u/L Lymphocytes % (19.3-51.7) % Monocytes % (4.7-12.5) % Eosinophils % (0.7-5.8) % Basophils % (0.1-1.2) % Absolute Granulocytes (1.56-6.13) x10^3/uL Basophils # (0.01-0.08) x10^3/uL Sodium (135-145) mmol/L Potassium (3.5-5.1) mmol/L Chloride (98-107) mmol/L Carbon Dioxide (22-30) mmol/L Anion Gap (5-15) MEQ/L BUN (7-17) mg/dL Creatinine (0.52-1.04) mg/dL Estimated GFR ML/MIN Glucose (74-106) mg/dL Lactic Acid 0.8 (0.4-2.0) Calcium (8.4-10.2) mg/dL Total Bilirubin (0.2-1.3) mg/dL AST (14-36) U/L ALT (0-35) U/L Alkaline Phosphatase (38-126) U/L Troponin I < 0.012 (0.000-0.033) ng/mL Serum Total Protein (6.3-8.2) g/dL Albumin (3.5-5.0) g/dL Lipase (23-300) U/L Urine Color Dark Yellow A (Yellow) Urine Appearance Cloudy A (Clear) Urine pH 5.5 (4.6-8.0) Ur Specific [place] 1.020 (1.005-1.030) Urine Protein 300 A (Negative) Urine Glucose (UA) Negative (Negative) mg/dL Urine Ketones Trace A (Negative) Urine Blood Small A (Negative) Urine Nitrite Positive A (Negative) Urine Bilirubin Negative (Negative) Urine Urobilinogen 1.0 A (0.2) mg/dL Ur Leukocyte Esterase Small A (Negative) U Hyaline Cast (Auto) 6-10 A (0-2) /LPF Urine Microscopic RBC 0-2 (0-5) /HPF Urine Microscopic WBC 21-50 A (0-5) /HPF Ur Epithelial Cells Many A (None Seen) /HPF Urine Bacteria Many A (None Seen) /HPF Urine Culture Reflexed YES (NO) 02/12/24 02/12/24 Range/Units 02:52 02:52 WBC 4.6 (3.98-10.04) x10^3/uL RBC 4.41 (3.93-5.22) x10^6/uL Hgb 9.5 L (11.2-15.7) g/dL Hct 32.2 L (34.1-44.9) % MCV 73.0 L (79.4-94.8) fL MCH 21.5 L (25.6-32.2) pg MCHC 29.5 L (32.2-35.5) g/dL RDW 19.1 H (11.7-14.4) % Plt Count 309 (182-369) x10^3/uL MPV 9.1 L (9.4-12.3) fL Gran % 66.4 (34.0-71.1) % Immature Gran % (Auto) 0.4 (0.001-0.429) % Nucleat RBC Rel Count 0.0 (0.00-0.2) % Eos # (Auto) 0.02 L (0.04-0.36) x10^3/uL Immature Gran # (Auto) 0.02 (0.001-0.031) x10^3u/L Absolute Lymphs (auto) 0.96 L (1.18-3.74) x10^3/uL Absolute Monos (auto) 0.53 (0.24-0.86) x10^3/uL Absolute Nucleated RBC 0.00 (0.00-0.012) x10^3u/L Lymphocytes % 21.0 (19.3-51.7) % Monocytes % 11.6 (4.7-12.5) % Eosinophils % 0.4 L (0.7-5.8) % Basophils % 0.2 (0.1-1.2) % Absolute Granulocytes 3.04 (1.56-6.13) x10^3/uL Basophils # 0.01 (0.01-0.08) x10^3/uL Sodium 134 L (135-145) mmol/L Potassium 3.3 L (3.5-5.1) mmol/L Chloride 102 (98-107) mmol/L Carbon Dioxide 18 L (22-30) mmol/L Anion Gap 17.6 H (5-15) MEQ/L BUN 46 H (7-17) mg/dL Creatinine 3.66 H (0.52-1.04) mg/dL Estimated GFR 14.7 ML/MIN Glucose 72 L (74-106) mg/dL Lactic Acid (0.4-2.0) Calcium 8.7 (8.4-10.2) mg/dL Total Bilirubin 0.20 (0.2-1.3) mg/dL AST 40 H (14-36) U/L ALT 38 H (0-35) U/L Alkaline Phosphatase 90 (38-126) U/L Troponin I (0.000-0.033) ng/mL Serum Total Protein 6.3 (6.3-8.2) g/dL Albumin 3.6 (3.5-5.0) g/dL Lipase 53 (23-300) U/L Urine Color (Yellow) Urine Appearance (Clear) Urine pH (4.6-8.0) Ur Specific [place] (1.005-1.030) Urine Protein (Negative) Urine Glucose (UA) (Negative) mg/dL Urine Ketones (Negative) Urine Blood (Negative) Urine Nitrite (Negative) Urine Bilirubin (Negative) Urine Urobilinogen (0.2) mg/dL Ur Leukocyte Esterase (Negative) U Hyaline Cast (Auto) (0-2) /LPF Urine Microscopic RBC (0-5) /HPF Urine Microscopic WBC (0-5) /HPF Ur Epithelial Cells (None Seen) /HPF Urine Bacteria (None Seen) /HPF Urine Culture Reflexed (NO) - Progress Progress: improved, re-examined Progress Note: 02/12/24 05:12 48 years old is evaluated in the ER with generalized abdominal pain more on the right side with decreased oral intake along with fatigue and tiredness. Patient is given fluids and symptomatic treatment for pain. EKG is normal sinus with no ST elevations and negative initial troponins. Has normal white count. Hemoglobin of 9.5 which is a little below the baseline but patient denies any dark stool, hematemesis and hematochezia. Has acute renal failure with a creatinine baseline around 0.7 and today is 3.6. Bicarb of 18 and a potassium of 3.3. She does have UTI with positive nitrites. Given a dose of aztreonam as patient is allergic to multiple other antibiotics. I have obtained CT abdomen pelvis without contrast which is negative for any acute intraabdominal/pelvic obstruction, no ureteral stones or obstructive uropathy but does have some fluid in right paracolic gutter area. Patient is hurting. Abdominal exam after fentanyl is nonsurgical. I have shared the results of workup with patient and family and recommended admission which they agreed. Discussed with Dr. Vang and patient is accepted for admission. Discussed with DrManny: Other Counseled pt/family regarding: lab results, diagnosis, need for follow-up, rad results Medical Desision Making - Independent Historian Additional History obtained from: Spouse - Discussion of managment Care discussed with:: hospitalist (Dr. Vang hospitalist) Reviewed:: Test results Agreed on:: Treatment plan, place in obs Will see patient: in hospital - Diagnostic Testing Diagnostic test were ordered, analyzed, and reviewed by me: Yes Radiological Interpretation: Reviewed by me, Teleradiologist Report - Risk of complications The pt has a mod risk of morbidity or mortality based on: Need for prescription drug management The pt has a high risk of morbidity or mortality based on: Decision regarding hospitilization or escalation of hosp level of care - Departure Departure Disposition: Observation Clinical Impression: Acute UTI (urinary tract infection), Right sided abdominal pain, Dehydration Acute renal failure (ARF) Qualifiers: Acute renal failure type: unspecified Qualified Code(s): N17.9 - Acute kidney failure, unspecified Condition: Stable Critical Care Time: No
[2024-02-12] MEDS: Sodium Chloride 0.9% 1000 ML 1,000 ML IV STA (02:43)
[2024-02-12] MEDS: SUBLIMAZE 100 MCG/2 ML IV ONE (02:43)
[2024-02-12 02:55] LABS: Absolute Neutrophil Ct (ANC) 3.04 x10^3/uL (1.56-6.13); BASOPHIL % 0.2 % (0.1-1.2); Basophil (Absolute #) 0.01 x10^3/uL (0.01-0.08); Eosinophil % 0.4 % (0.7-5.8); Eosinophil (Absolute #) 0.02 x10^3/uL (0.04-0.36); Hematocrit 32.2 % (34.1-44.9); Hemoglobin 9.5 g/dL (11.2-15.7); IMMATURE GRAN # 0.02 x10^3u/L (0.001-0.031); IMMATURE GRAN % 0.4 % (0.001-0.429); Lymphocyte (Absolute #) 0.96 x10^3/uL (1.18-3.74); Mean Corpuscular Hemoglobin 21.5 pg (25.6-32.2); Mean Corpuscular Hgb Concent. 29.5 g/dL (32.2-35.5); Mean Platelet Volume 9.1 fL (9.4-12.3); Monocyte (Absolute #) 0.53 x10^3/uL (0.24-0.86); Monocytes % 11.6 % (4.7-12.5); Neutrophil % 66.4 % (34.0-71.1); Platelet Count 309 x10^3/uL (182-369); Red Blood Count 4.41 x10^6/uL (3.93-5.22); Red Cell Distribution Width 19.1 % (11.7-14.4); White Blood Count 4.6 x10^3/uL (3.98-10.04)
[2024-02-12 03:06] LABS: Appearance Cloudy (Clear); Bacteria Many /HPF (None Seen); Bilirubin Negative (Negative); Blood Small (Negative); Epithelial Cells Many /HPF (None Seen); Glucose, Urine Negative (Negative); Ketones Trace (Negative); Leukocyte Esterase Small (Negative); Nitrite Positive (Negative); Ph 5.5 (4.6-8.0); Protein,Urine Dip 300 (Negative); RBC 0-2 /HPF (0-5); WBC 21-50 /HPF (0-5)
[2024-02-12 03:08] LABS: ADD URINE CULTURE? YES (NO); ALBUMIN 3.6 g/dL (3.5-5.0); ANION GAP 17.6 MEQ/L (5-15); BILIRUBIN,TOTAL 0.2 mg/dL (0.2-1.3); Calcium 8.7 mg/dL (8.4-10.2); Creatinine 1 3.66 mg/dL (0.52-1.04); EST GLOMERULAR FILTRATION RATE 14.7 ML/MIN; Potassium 3.3 mmol/L (3.5-5.1); Total Protein 6.3 g/dL (6.3-8.2)
--- NOTE | 2024-02-12 04:05 | XRAY ---
CLINICAL HISTORY: abd pain COMPARISON: None. TECHNIQUE: CT scan of the abdomen and pelvis without intravenous contrast administration. One of the following dose reduction techniques was utilized for this exam: Automated exposure control, adjustment of the mA and/or kV according to patient size, and use of iterative reconstruction. FINDINGS: Status postoperative with evidence of right iliac colostomy. The liver is of average size with a prominent Reidle's lobe, shows regular contour and homogeneous texture with no focal lesion could be detected on non-contrast basis. No intra hepatic biliary radical dilatation. The GB is surgically removed. The spleen is of average size and shape with homogeneous parenchyma and no focal lesion could be noted on non-contrast basis. Both kidneys are of normal size, shape and parenchymal thickness with no stones, back pressure changes or space occupying lesions on non-contrast basis. The other retroperitoneal structures including the pancreas and adrenal glands are grossly within normal limits. The small and large bowels cannot be assessed due to the lack of oral contrast material. Yet, no signs of acute obstruction. No significant lymph elizabeth enlargement. Perihepatic and right paracolic gutter fluid collection is noted. The appendix is not visualized. The uterus is not visualized. No adenxal solid or cystic lesions. Atherosclerotic calcification of the aorta and its branches. Inadequate filling of the urinary bladder with no stones, masses, or diverticula. Bone window settings showed the sacrum to be hypoplastic and the coccyx is missing. Degenerative changes of the lumbar spine and reduced osseous mineralization are noted. Marked calcified granulomas noted in right gluteal region, likely injection granulomas. Few similar granulomas also seen in left gluteal region. Lung window settings showed normal appearance of both basal lung segments. IMPRESSION: 1. Postoperative status. Correlation with surgical history is advised. 2. Right paracolic gutter and perihepatic fliud collection is noted. 3. Inadequate assessment of the bowel loops. Further evaluation by CT with oral and IV contrast is advised. 4. Partial sacral agenesis (caudal regression syndrome). Electronically Signed by: Marla Alvares MD. (02/12/2024 04:02:03 EDT)
[2024-02-12] MEDS ORDERED: AZACTAM 1 GM ONE (05:16)
[2024-02-12] MEDS ORDERED: Sodium Chloride 0.9% 0 ML ONE (05:18)
[2024-02-12] MEDS: AZACTAM 1 GM*** 1 GM in Sodium Chloride 100ML MINI-BAG PLUS 100 ML IV SCH ×2 (05:24→16:44)
[2024-02-12] MEDS ORDERED: Sodium Chloride 100ML MINI-BAG PLUS 100 ML IV ONE (05:25)
[2024-02-12] MEDS: Sodium Chloride 0.9% 500 ML 500 ML IV ONE (05:26)
[2024-02-12] MEDS ORDERED: Sodium Chloride 0.9% 500 ML 500 ML IV ONE (05:26)
[2024-02-12] MEDS: Sodium Chloride 0.9% 1000 ML 1,000 ML IV SCH (07:22)
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
[2024-02-12] MEDS ORDERED: ATARAX 25 MG PO PRN (07:55)
[2024-02-12] MEDS: Lactated Ringers 1,000 ML IV SCH (08:44)
[2024-02-12] MEDS: Klor Con PO SCH (08:45)
[2024-02-12] MEDS: TYLENOL 325 MG PO PRN (10:21)
[2024-02-12] MEDS: Protonix 40MG Tablet PO SCH (10:21)
[2024-02-12] MEDS: HEPARIN 5000 UNITS/0.5 ML (HIGH RISK MED) SQ SCH (10:22)
[2024-02-12] MEDS: Zofran 4 MG/2 ML VIAL IV PRN (10:54)
[2024-02-12] MEDS: Lomotil PO SCH (12:43)
[2024-02-12] MEDS: Hydromorphone 1 mg/ml Injection IV PRN (12:44)
[2024-02-12] MEDS: DUONEB 0.5-3 MG/3 ml Neb IH SCH (13:39)
[2024-02-12] MEDS ORDERED: DUONEB 0.5-3 MG/3 ml Neb IH PRN (14:44)
--- NOTE | 2024-02-13 05:21 | PCM.NOTE ---
Date and Time: 02/13/24 05 Subjective Assessment: HPI: Ms. HARKINS is a 48 year old female with a past medical history significant for hypertension, seizures, multiple abdominal surgeries with h/o bowel obstruction status post ileostomy, morbid obesity status post bariatric surgery, asthma and neurogenic bladder requiring self caths -> recurrent UTIs admitted 02/12/24 with UTI and MICHEL. Upon arrival labs were notable for an elevated creatinine of 3.66. In review of her records, it appears that her baseline is 0.77 from June 2023. She does take Lisinopril for usual bp meds. CT abdomen showing right paracolic gutter and perihepatic fliud collection is noted. Partial sacral ageneisis. Surgery consulted regarding fluid collection - no need for intervention. Ileostomy with increased output - surgery started lomotil. Patient is feeling much improved today. Continues to endorse right flank pain. Ucult with NGTD. Creat greatly improved today 1.39<3.66. Plan to continue IVF and abx. Will repeat CT tomorrow if pain is persisting. - Review of Systems Constitutional: No Symptoms Eyes: No Symptoms Ears, Nose, & Throat: No Symptoms Respiratory: No Symptoms Cardiac: No Symptoms Abdominal/Gastrointestinal: Other (right flank pain ) Genitourinary Symptoms: No Symptoms Musculoskeletal: No Symptoms Skin: No Symptoms Neurological: No Symptoms Psychological: No Symptoms Endocrine: No Symptoms Objective Exam General Appearance: no apparent distress Neurologic Exam: alert, oriented x 3, cooperative Skin Exam: normal color Eye Exam: PERRL Ears, Nose, Throat Exam: normal ENT inspection Neck Exam: normal inspection Respiratory Exam: normal breath sounds, lungs clear Cardiovascular Exam: regular rate/rhythm, normal heart sounds Gastrointestinal/Abdomen Exam: soft, normal bowel sounds, other (ileostomy) Extremity Exam: normal inspection Back Exam: normal inspection Pelvic Exam: deferred Rectal Exam: deferred Objective Data Vital Signs: Vital Signs - 24 hr Temp Pulse Resp BP BP Pulse Ox 02/13/24 04:00 97.5 F 71 18 126/75 100 02/13/24 00:00 97.2 F 71 16 123/74 96 02/12/24 20:00 97.9 F 74 16 100/60 99 02/12/24 19:22 77 16 95 02/12/24 16:00 98.0 F 68 18 160/88 98 02/12/24 15:54 73 16 97 02/12/24 11:28 97.9 F 70 20 155/86 98 02/12/24 07:54 97.8 F 72 18 133/96 100 02/12/24 06:31 97.8 F 72 18 133/96 100 02/12/24 06:00 77 121/82 98 02/12/24 05:30 74 128/82 98 02/12/24 05:17 100 Pain Assessment - Last Documented Pain Intensity 5 Pain Scale Used 0-10 Pain Scale Intake and Output: Intake & Output 02/10/24 02/11/24 02/12/24 02/13/24 11:59 11:59 11:59 11:59 Intake Total 240 3490 Output Total 650 Balance 240 2840 Weight 50.4 kg Lab Results: Lab Results-Last 24 Hours 02/12/24 02/12/24 02/12/24 Range/Units 06:35 06:40 11:15 Potassium (3.5-5.1) mmol/L Magnesium 2.0 (1.6-2.3) mg/dL Troponin I < 0.012 < 0.012 (0.000-0.033) ng/mL Procalcitonin (0.030-0.080) ng/mL 02/12/24 02/12/24 Range/Units 18:25 Unknown Potassium 4.5 D (3.5-5.1) mmol/L Magnesium (1.6-2.3) mg/dL Troponin I (0.000-0.033) ng/mL Procalcitonin 1.800 H (0.030-0.080) ng/mL Radiology Exams: Radiology Procedures Category Date Time Status ABDOMEN AND PELVIS W/0 CONTRAS [CT] Stat Exams 02/12/24 02:37 Completed Assessment/Plan (1) Acute UTI (urinary tract infection) Current Visit: Yes Status: Acute Assessment & Plan: -H/o spina bifida- self caths at home -UA suspicious for UTI, will start empiric Azactam due to mult allergies- follow cultures -consider repeat CT tomorrow if no improvement in flank pain Code(s): N39.0 - URINARY TRACT INFECTION, SITE NOT SPECIFIED (2) Acute renal failure (ARF) Current Visit: Yes Status: Acute Qualifiers: Acute renal failure type: unspecified Qualified Code(s): N17.9 - Acute kidney failure, unspecified Assessment & Plan: -Avoid CARL/ARB/NSAIDS -Monitor renal/lytes daily -IVF -Hold home lisinopril -improved 1.39<3.66 (3) Neurogenic bladder Current Visit: Yes Status: Acute Assessment & Plan: -Self -caths - continue Code(s): N31.9 - NEUROMUSCULAR DYSFUNCTION OF BLADDER, UNSPECIFIED (4) Hypertension Current Visit: No Status: Acute Qualifiers: Hypertension type: primary hypertension Qualified Code(s): I10 - Essential (primary) hypertension Assessment & Plan: -Hold lisinopril -monitor BP - consider CCB or BB if needed Code(s): I10 - ESSENTIAL (PRIMARY) HYPERTENSION (5) Spina bifida Current Visit: No Status: Acute Assessment & Plan: -Noted, adds complexity, continue home self-cath regimen Code(s): Q05.9 - SPINA BIFIDA, UNSPECIFIED
[2024-02-13 05:32] LABS: Absolute Neutrophil Ct (ANC) 3.47 x10^3/uL (1.56-6.13); BASOPHIL % 0.3 % (0.1-1.2); Basophil (Absolute #) 0.02 x10^3/uL (0.01-0.08); Eosinophil % 1.1 % (0.7-5.8); Eosinophil (Absolute #) 0.07 x10^3/uL (0.04-0.36); Hematocrit 30.9 % (34.1-44.9); Hemoglobin 9.2 g/dL (11.2-15.7); IMMATURE GRAN # 0.05 x10^3u/L (0.001-0.031); IMMATURE GRAN % 0.8 % (0.001-0.429); Lymphocyte (Absolute #) 1.78 x10^3/uL (1.18-3.74); Lymphocytes % 28.3 % (19.3-51.7); Mean Cell Volume 73.2 fL (79.4-94.8); Mean Corpuscular Hemoglobin 21.8 pg (25.6-32.2); Mean Corpuscular Hgb Concent. 29.8 g/dL (32.2-35.5); Mean Platelet Volume 9.1 fL (9.4-12.3); Monocyte (Absolute #) 0.89 x10^3/uL (0.24-0.86); Monocytes % 14.2 % (4.7-12.5); Neutrophil % 55.3 % (34.0-71.1); Platelet Count 307 x10^3/uL (182-369); Red Blood Count 4.22 x10^6/uL (3.93-5.22); Red Cell Distribution Width 20.1 % (11.7-14.4); White Blood Count 6.3 x10^3/uL (3.98-10.04)
[2024-02-13 05:47] LABS: ALBUMIN 2.8 g/dL (3.5-5.0); ANION GAP 10.7 MEQ/L (5-15); BILIRUBIN,TOTAL 0.1 mg/dL (0.2-1.3); Creatinine 1 1.39 mg/dL (0.52-1.04); EST GLOMERULAR FILTRATION RATE 46.8 ML/MIN; Potassium 4.4 mmol/L (3.5-5.1); Total Protein 5.4 g/dL (6.3-8.2)
[2024-02-13] MEDS: NORCO 5/325 MG PO PRN (16:36)
--- NOTE | 2024-02-13 17:38 | CONS ---
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 She has an essentially permanent end ileostomy because she has a short gut and has chronic diarrhea and she presents with recurrent UTI and abdominal pain because she has to self-cath for her neurogenic bladder dysfunction. CAT scan was done in the ER which did demonstrate some chronic findings including small amount of fluid in the lateral pelvic gutters, but no other acute abnormalities were seen. REVIEW OF SYSTEMS: Per HPI. PAST MEDICAL HISTORY: As stated, spina bifida, neurogenic bladder. PAST SURGICAL HISTORY: Gastric bypass for bariatric surgery remotely, ex-lap with small bowel and large bowel resections for ischemic bowel with an end ileostomy. PHYSICAL EXAMINATION: GENERAL: Alert and oriented. VITAL SIGNS: Stable. CARDIOVASCULAR: Regular rate and rhythm. RESPIRATORY: Nonlabored breathing. ABDOMEN: Soft, nontender, nondistended. Right lower quadrant ileostomy with watery stool. LABORATORY DATA: Significant laboratory findings: Chronic anemia and hypokalemia. Elevated creatinine likely dehydration from her end stoma as well as possibly from post renal obstruction. Her UA is significantly positive as it usually is. Significant radiographic findings: As stated, there was a small amount of fluid in the lateral pelvic gutters, very small and likely a chronic finding for her. Otherwise, unremarkable CAT scan. ASSESSMENT: This is a 40-year-old female with urinary tract infection and abdominal pain with nausea from this. Surgery consulted on the abnormal CT findings. PLAN: No surgery planned for this patient at this time. Monitor her and treat her clinically. IV fluid resuscitation, antibiotics and will monitor her progress. She may need antidiarrheal medications to help her with her diarrhea currently. It does not appear that she is receiving anything. We can start some Lomotil for her and titrate it up until we get an improvement in her diarrhea.
[2024-02-13] MEDS: Dilaudid 4 MG Tab PO PRN (22:19)
--- NOTE | 2024-02-14 05:16 | PCM.DS ---
Discharge Summary Date of Admission: 02/12/24 06:22 Date of Discharge: 02/14/24 Admitting Physician: CHARISMA MATHEWS MD Consults: Consults on Case 02/12/24 11:02 Consult Surgery ROUTINE Primary Care Provider: JULI MONAHAN MD Allergies Allergies cephalexin monohydrate [From Keflex] Allergy (Mild, Verified 02/12/24 07:07) Blisters clindamycin Allergy (Mild, Verified 02/12/24 07:07) Blisters Penicillins Allergy (Mild, Verified 02/12/24 07:07) Blisters nitrofurantoin [From Furadantin] Allergy (Verified 02/12/24 07:07) morphine Adverse Reaction (Intermediate, Verified 02/12/24 07:07) Headache Hospital Summary - Hospital Course Hospital Course: HPI: Ms. HARKINS is a 48 year old female with a past medical history significant for hypertension, seizures, multiple abdominal surgeries with h/o bowel obstruction status post ileostomy, morbid obesity status post bariatric surgery, asthma and neurogenic bladder requiring self caths -> recurrent UTIs admitted 02/12/24 with UTI and MICHEL. Upon arrival labs were notable for an elevated creatinine of 3.66. In review of her records, it appears that her baseline is 0.77 from June 2023. She does take Lisinopril for usual bp meds. CT abdomen showing right paracolic gutter and perihepatic fliud collection is noted. Partial sacral ageneisis. Surgery consulted regarding fluid collection - no need for intervention. Ileostomy with increased output - surgery started lomotil. Ucult with Ecoli. Sensitive to Bactrim. Creat now WNL. Repeat CT abdomen with no fluid collection demonstrated. Patient stable for discharge. Advised follow up for UTI resolution Discharge Note New Diagnosis: MICHEL, UTI New Medications: Bactrim/lomotil Follow Up: PCP Latest Assessment & Plan (1) Acute UTI (urinary tract infection) Current Visit: Yes Status: Acute Assessment & Plan: -H/o spina bifida- self caths at home -UA suspicious for UTI, will start empiric Azactam due to mult allergies- follow cultures -consider repeat CT tomorrow if no improvement in flank pain 02/13: -Ecoli on culture will send home with bactrim Code(s): N39.0 - URINARY TRACT INFECTION, SITE NOT SPECIFIED (2) Acute renal failure (ARF) Current Visit: Yes Status: Acute Qualifiers: Acute renal failure type: unspecified Qualified Code(s): N17.9 - Acute kidney failure, unspecified Assessment & Plan: -Avoid CARL/ARB/NSAIDS -Monitor renal/lytes daily -IVF -Hold home lisinopril -improved 1.39<3.66 02/13: creat wnl (3) Neurogenic bladder Current Visit: Yes Status: Acute Assessment & Plan: -Self -caths - continue Code(s): N31.9 - NEUROMUSCULAR DYSFUNCTION OF BLADDER, UNSPECIFIED (4) Hypertension Current Visit: No Status: Acute Qualifiers: Hypertension type: primary hypertension Qualified Code(s): I10 - Essential (primary) hypertension Assessment & Plan: -Hold lisinopril -monitor BP - consider CCB or BB if needed Code(s): I10 - ESSENTIAL (PRIMARY) HYPERTENSION (5) Spina bifida Current Visit: No Status: Acute Assessment & Plan: -Noted, adds complexity, continue home self-cath regimen I spent 35 minutes [id number] with the patient on the day of discharge performing discharge exam, discussing hospital stay and discharge instructions with patient and caregivers, preparation of discharge records, prescriptions & referral forms and addressing any questions/concerns the patient had as documented above. - Vitals & Intake/Output Vital Signs: Vital Signs Temperature 97.6 F 02/14/24 04:00 Pulse Rate 66 02/14/24 04:00 Respiratory Rate 16 02/14/24 04:00 Blood Pressure 150/80 02/14/24 04:00 O2 Sat by Pulse Oximetry 98 02/14/24 04:00 Intake & Output: Intake & Output 02/11/24 02/12/24 02/13/24 02/14/24 11:59 11:59 11:59 11:59 Intake Total 240 3870 840 Output Total 650 Balance 240 3220 840 Weight 50.4 kg - Lab Result Diagrams: 02/14/24 06:00 02/14/24 06:00 Lab Results-Last 24 Hrs: Lab Results-Last 24 Hours 02/13/24 02/13/24 02/13/24 Range/Units 05:25 05:25 05:25 WBC 6.3 (3.98-10.04) x10^3/uL RBC 4.22 (3.93-5.22) x10^6/uL Hgb 9.2 L (11.2-15.7) g/dL Hct 30.9 L (34.1-44.9) % MCV 73.2 L (79.4-94.8) fL MCH 21.8 L (25.6-32.2) pg MCHC 29.8 L (32.2-35.5) g/dL RDW 20.1 H (11.7-14.4) % Plt Count 307 (182-369) x10^3/uL MPV 9.1 L (9.4-12.3) fL Gran % 55.3 (34.0-71.1) % Immature Gran % (Auto) 0.8 H (0.001-0.429) % Nucleat RBC Rel Count 0.0 (0.00-0.2) % Eos # (Auto) 0.07 (0.04-0.36) x10^3/uL Immature Gran # (Auto) 0.05 H (0.001-0.031) x10^3u/L Absolute Lymphs (auto) 1.78 (1.18-3.74) x10^3/uL Absolute Monos (auto) 0.89 H (0.24-0.86) x10^3/uL Absolute Nucleated RBC 0.00 (0.00-0.012) x10^3u/L Lymphocytes % 28.3 (19.3-51.7) % Monocytes % 14.2 H (4.7-12.5) % Eosinophils % 1.1 (0.7-5.8) % Basophils % 0.3 (0.1-1.2) % Absolute Granulocytes 3.47 (1.56-6.13) x10^3/uL Basophils # 0.02 (0.01-0.08) x10^3/uL Sodium 136 (135-145) mmol/L Potassium 4.4 (3.5-5.1) mmol/L Chloride 112 H (98-107) mmol/L Carbon Dioxide 19 L (22-30) mmol/L Anion Gap 10.7 (5-15) MEQ/L BUN 25 H (7-17) mg/dL Creatinine 1.39 H (0.52-1.04) mg/dL Estimated GFR 46.8 ML/MIN Glucose 84 (74-106) mg/dL Calcium 8.0 L (8.4-10.2) mg/dL Magnesium 1.7 (1.6-2.3) mg/dL Total Bilirubin 0.10 L (0.2-1.3) mg/dL AST 25 (14-36) U/L ALT 25 (0-35) U/L Alkaline Phosphatase 75 (38-126) U/L Serum Total Protein 5.4 L (6.3-8.2) g/dL Albumin 2.8 L (3.5-5.0) g/dL Micro Results-Entire Visit: Microbiology 02/12/24 02:52 Urine Culture - Final Urine, Void Escherichia Coli - Procedures and Test Procedures and Tests throughout Hospitalization: Therapy Orders & Screens 02/12/24 07:04 Smoking Cessation Education ONCE Comment: Diagnosis: MICHEL; dehydration; UTI Smoking Status: Light tobacco smoker How long have you smoked: 30 years Have you smoked in the past 12 months: Yes Approximately how many cigarettes per day: 4 Do you dip or chew tobacco: No ST Screen per Nursing Assess ONCE Comment: Protocol Order Physician Instructions: Greater than [address] Admission Screening Reason For Exam: Triggered on Admission Diagnosis: MICHEL; dehydration; UTI CVA/Dyshpagia/Aphasia: No Cognitive Deficits: No Dehydration/Nutrition Deficit: Yes Reflux: No Oral-Motor Difficulties: No Pneumonia: No Senior Care Resident: No Total Points: 5 02/12/24 14:44 Respiratory Therapy Assessment DAILY Comment: Diagnosis: MICHEL; dehydration; UTI Discharge Exam General Appearance: no apparent distress Neurologic Exam: alert, oriented x 3, cooperative Eye Exam: PERRL Ears, Nose, Throat Exam: normal ENT inspection Neck Exam: normal inspection Respiratory Exam: normal breath sounds, lungs clear Cardiovascular Exam: regular rate/rhythm, normal heart sounds Gastrointestinal/Abdomen Exam: soft, normal bowel sounds Pelvic Exam: deferred Rectal Exam: deferred Extremity Exam: normal inspection Skin Exam: normal color Final Diagnosis/Problem List - Final Discharge Diagnosis/Problem (1) Acute UTI (urinary tract infection) Current Visit: Yes Status: Acute Code(s): N39.0 - URINARY TRACT INFECTION, SITE NOT SPECIFIED (2) Acute renal failure (ARF) Current Visit: Yes Status: Resolved (3) Neurogenic bladder Current Visit: Yes Status: Chronic Code(s): N31.9 - NEUROMUSCULAR DYSFUNCTI ON OF BLADDER, UNSPECIFIED (4) Hypertension Current Visit: No Status: Chronic Code(s): I10 - ESSENTIAL (PRIMARY) HYPERTENSION (5) Spina bifida Current Visit: No Status: Chronic Code(s): Q05.9 - SPINA BIFIDA, UNSPECIFIED - Discharge Disposition: Home, Self-Care Condition: Stable Prescriptions: New Sulfamethoxazole/Trimethoprim [Bactrim Ds Tablet] 1 each PO BID 7 Days #14 tablet Hydrocodone/Acetaminophen [Hydrocodone-Acetamin 5-325 mg] 1 tab PO Q4HPRN PRN 3 Days #18 tablet MDD 6 PRN Reason: Pain Diphenoxylate HCl/Atropine [Lomotil] 2 tablet PO QID 14 Days #28 tablet Continue lisinopriL [Lisinopril] 10 mg PO DAILY Nitroglycerin 0.4 mg Tablet [Nitrostat 0.4 MG Tablet] 0.4 mg SL Q5MIN PRN MR X 3 PRN PRN Reason: Chest Pain Hydroxyzine HCl 25 mg [Atarax 25 mg] 25 mg PO Q8HPRN PRN PRN Reason: Anxiety Discontinued Ciprofloxacin HCl 500 mg PO BID Follow up with: JULI MONAHAN MD [Primary Care Provider] - 02/21/24 10:00 am
[2024-02-14 06:22] LABS: Absolute Neutrophil Ct (ANC) 2.31 x10^3/uL (1.56-6.13); BASOPHIL % 0.6 % (0.1-1.2); Basophil (Absolute #) 0.03 x10^3/uL (0.01-0.08); Eosinophil % 1.1 % (0.7-5.8); Eosinophil (Absolute #) 0.06 x10^3/uL (0.04-0.36); Hematocrit 30.7 % (34.1-44.9); Hemoglobin 9.1 g/dL (11.2-15.7); IMMATURE GRAN # 0.12 x10^3u/L (0.001-0.031); IMMATURE GRAN % 2.3 % (0.001-0.429); Lymphocyte (Absolute #) 2.13 x10^3/uL (1.18-3.74); Lymphocytes % 40.6 % (19.3-51.7); Mean Cell Volume 72.9 fL (79.4-94.8); Mean Corpuscular Hemoglobin 21.6 pg (25.6-32.2); Mean Corpuscular Hgb Concent. 29.6 g/dL (32.2-35.5); Mean Platelet Volume 8.7 fL (9.4-12.3); Monocytes % 11.4 % (4.7-12.5); Platelet Count 314 x10^3/uL (182-369); Red Blood Count 4.21 x10^6/uL (3.93-5.22); Red Cell Distribution Width 19.6 % (11.7-14.4); White Blood Count 5.3 x10^3/uL (3.98-10.04)
[2024-02-14 06:31] LABS: ALBUMIN 2.8 g/dL (3.5-5.0); ALKALINE PHOSPHATASE 75 U/L (38-126); ANION GAP 9.2 MEQ/L (5-15); BILIRUBIN,TOTAL < 0.10 mg/dL (0.2-1.3); BLOOD UREA NITROGEN 16 mg/dL (7-17); CHLORIDE 108 mmol/L (98-107); Calcium 8.2 mg/dL (8.4-10.2); Carbon Dioxide 23 mmol/L (22-30); Creatinine 1 0.93 mg/dL (0.52-1.04); EST GLOMERULAR FILTRATION RATE 75.8 ML/MIN; Glucose 80 mg/dL (74-106); Potassium 4.4 mmol/L (3.5-5.1); SGOT/AST 24 U/L (14-36); SGPT/ALT 23 U/L (0-35); SODIUM 135 mmol/L (135-145); Total Protein 5.5 g/dL (6.3-8.2)
--- NOTE | 2024-02-14 09:45 | XRAY ---
Indication: Abdomen/flank pain. Nausea. Multiple contiguous axial images obtained through the abdomen pelvis without contrast. Comparison: February 12, 2024 Lung bases again demonstrate pulmonary emphysema with fibrosis/scarring. No infiltrate or effusion. Heart not enlarged. Again gastric bypass surgery, right mid abdominal colostomy, hysterectomy, and cholecystectomy. Noncontrasted stomach and bowel loops appear nonobstructed. No free fluid/air. Mildly distended urinary bladder demonstrates mild circumferential wall thickening either incomplete distention versus cystitis. Remaining liver, pancreas, spleen, adrenal glands, kidneys, ureters, and bladder are unremarkable for noncontrast exam. Stable moderate scattered aortoiliac calcifications without AAA. Impression: 1. Urinary bladder circumferential wall thickening either incomplete distention versus cystitis. 2. Stable pulmonary emphysema, bibasilar fibrosis/scarring, postsurgical changes, and arteriosclerotic disease.
[2024-02-14 12:03] VITALS: BP 173/83; PULSE 74; RESP 20; TEMP 97.3; O2SAT 96
== END 2024-02-14 13:22 | disposition home or self-care (01) ==
LOC: ED 01:29 → MED SURG 06:22
PROVIDERS: ADMIT Internal Medicine Nephrology; ATTEND Internal Medicine Nephrology
DX: N39.0 Urinary tract infection, site not specified (principal); B96.20 Unspecified Escherichia coli [E. coli] as the cause of diseases classified elsewhere; N17.9 Acute kidney failure, unspecified; I10 Essential (primary) hypertension; N31.9 Neuromuscular dysfunction of bladder, unspecified; Q05.9 Spina bifida, unspecified; Z79.899 Other long term (current) drug therapy; F17.200 Nicotine dependence, unspecified, uncomplicated; E66.9 Obesity, unspecified; Z98.84 Bariatric surgery status; Z93.2 Ileostomy status
CPT/HCPCS: 36000; 36415; 74176; 80053; 81001; 83605; 83690; 83735; 84132; 84145; 84484; 85025; 87077; 87086; 87186; 93005; 94760; 96360; 96365; 96374; 99285; J1170; J1644; J2405; J3010; Q3014; A9270-GY

== ENCOUNTER 2024-07-06 19:50 | Emergency (ER) | payer MEDICARE ==
[2024-07-06 20:04] VITALS: TEMP 96.8
--- NOTE | 2024-07-06 20:23 | ERPHSYRPT ---
- History of Present Illness Time Seen by Provider: 07/06/24 19:52 Historian: patient Exam Limitations: no limitations Patient Subjective Stated Complaint: pt states that she has been having a fast heart rate for the past day Triage Nursing Assessment: pt ambulated into the er; pt is axo x4; c/o palpations; pt denies pain; pt states she has body aches; skin PDW; no respiratory distress present; clear lung sounds in all lobes; clear apical heart tone; strong hammad radial pulses; strong hammad pedal pulse; no edema present; vitals wnl Physician History: 49-year-old female with history of hypertension, hyperlipidemia, tobacco use, palpitation/SVT, CAD presented in the ER with complains of palpitations since yesterday. Patient denies any chest pain or difficulty breathing. Also reports having aches and pains all over along with mild nasal/sinus congestion and having increased thirst with a feeling as if she is dehydrated. Subjective feeling of fever and chills. No history of DVT or PE. Aspirin Treatment Today: unknown Allergies/Adverse Reactions: cephalexin monohydrate [From Keflex] Allergy (Mild, Verified 07/06/24 19:53) Blisters clindamycin Allergy (Mild, Verified 07/06/24 19:53) Blisters Penicillins Allergy (Mild, Verified 07/06/24 19:53) Blisters nitrofurantoin [From Furadantin] Allergy (Verified 07/06/24 19:53) morphine Adverse Reaction (Intermediate, Verified 07/06/24 19:53) Headache Home Medications: lisinopriL [Lisinopril] 10 mg PO DAILY 09/07/14 [History] Hydroxyzine HCl 25 mg [Atarax 25 mg] 25 mg PO Q8HPRN PRN 02/12/24 [History] Nitroglycerin 0.4 mg Tablet [Nitrostat 0.4 MG Tablet] 0.4 mg SL Q5MIN PRN MR X 3 PRN 02/12/24 [History] Hx Tetanus, Diphtheria Vaccination/Date Given: Yes Hx Influenza Vaccination/Date Given: No Hx Pneumococcal Vaccination/Date Given: No Immunizations Up to Date: No Travel Risk - International Travel Have you traveled outside of the country in past 3 weeks: No - Emerging Infectious Disease Are you exhibiting symptoms associated with any current EIDs: Yes Symptoms: Headaches/Body Aches/ - Review of Systems Constitutional: Fever, Chills, Fatigue, Weakness Eyes: No Symptoms Ears, Nose, & Throat: Nose Congestion Respiratory: No Symptoms Cardiac: Palpitations Abdominal/Gastrointestinal: No Symptoms Genitourinary Symptoms: No Symptoms Musculoskeletal: Arthralgias Skin: No Symptoms Neurological: No Symptoms Endocrine: No Symptoms Hematologic/Lymphatic: No Symptoms Immunological/Allergic: No Symptoms - Past Medical History Pertinent Past Medical History: Yes Neurological History: Migraines, Seizures ENT History: No Pertinent History Cardiac History: Hypertension Respiratory History: Asthma Endocrine Medical History: No Pertinent History Musculoskeletal History: No Pertinent History GI Medical History: Other, Hepatitis, Cirrhosis History: Other Psycho-Social History: Depression Female Reproductive Disorders: Other Other Medical History: 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 WHICH LED TO TOTAL HYSTERECTOMY ET 10% OF STOMACHE LEFT, NEUROGENIC BLADDER ET BOWEL, SPINA BIFIDA - Past Surgical History Past Surgical History: Yes Neuro Surgical History: No Pertinent History Cardiac: No Pertinent History Respiratory: No Pertinent History Gastrointestinal: Bowel Surgery Genitourinary: Other Musculoskeletal: No Pertinent History Female Surgical History: Hysterectomy, Section Other Surgical History: tumor removal, Iliostomy, gastric bypass - Female History Hx Last Menstrual Period: HYSTER Hx Now: (unkn) - Social History Smoking Status: Current every day smoker How long have you smoked: 30 years Exposure to second hand smoke: Yes Drug Use: marijuana Patient Lives Alone: No - Social Determinants of Health Will the patient participate in the screening: Yes Do you worry about a steady place to live?: No Do you have any problems with any of the following?: No known problems In the past 12 months,have you had to go without utilities?: No Transportation Issues: No Has anyone in your support network made you feel unsafe?: No Have you or anyone in your house had to go without enough: No - Nursing Vital Signs Nursing Vital Signs: Initial Vital Signs Temperature 96.8 F 07/06/24 19:57 Pulse Rate 90 07/06/24 19:57 Respiratory Rate 16 07/06/24 19:57 Blood Pressure 121/90 07/06/24 19:57 O2 Sat by Pulse Oximetry 100 07/06/24 19:57 Pain Scale Pain Intensity 0 - Physical Exam General Appearance: no apparent distress, alert Eye Exam: PERRL/EOMI Ears, Nose, Throat Exam: moist mucous membranes, pharyngeal erythema Neck Exam: normal inspection, non-tender, supple, full range of motion Respiratory Exam: normal breath sounds, lungs clear Cardiovascular Exam: regular rate/rhythm, normal heart sounds Gastrointestinal/Abdomen Exam: soft, normal bowel sounds, No tenderness Extremity Exam: normal inspection, normal range of motion Neurologic Exam: alert, oriented x 3, cooperative Skin Exam: normal color SpO2 Interpretation: normal SpO2: 100 O2 Delivery: Room Air - Course EKG Interpreted by Me: RATE (89), Sinus Rhythm, NORMAL AXIS, NORMAL INTERVALS, Q-wave, Non-specific ST Changes Ordered Tests: Active Orders 24 hr Category Date Time Status Warehouse Processor STAT Care 07/06/24 19:58 Active Clean Catch Urine Specimen STAT Care 07/06/24 21:50 Active IV Insertion STAT Care 07/06/24 19:57 Active CHEST 1 VIEW (PORTABLE) Stat Exams 07/06/24 19:57 Taken CBC W DIFF Stat Lab 07/06/24 20:50 Completed CMP Stat Lab 07/06/24 20:50 Completed CULTURE,URINE Stat Lab 07/06/24 21:49 Received D-DIMER QUANTITATIVE Stat Lab 07/06/24 21:00 Completed MAGNESIUM Stat Lab 07/06/24 20:50 Completed NT PRO BNPII Stat Lab 07/06/24 20:50 Completed TROPONIN Q4H Lab 07/06/24 20:50 Completed TROPONIN Q4H Lab 07/07/24 00:35 Received TROPONIN Q4H Lab 07/07/24 04:00 Ordered UA W/RFX UR CULTURE Stat Lab 07/06/24 21:49 Completed Urine Triage Profile Stat Lab 07/06/24 21:00 Completed Medication Summary Discontinued Medications Generic Name Dose Route Start Last Admin Trade Name Vladimirq PRN Reason Stop Dose Admin Ciprofloxacin 500 mg 07/07/24 00:42 07/07/24 00:51 Ciprofloxacin 500 Mg Tablet PO 07/07/24 00:43 500 mg ONCE STA Administration Ciprofloxacin Confirm 07/07/24 00:49 Ciprofloxacin 500 Mg Tablet Administered 07/07/24 00:50 Dose 500 mg .ROUTE .STK-MED ONE Sodium Chloride 1,000 mls @ 999 mls/hr 07/06/24 19:57 07/06/24 23:43 Sodium Chloride 0.9% 1000 Ml IV 07/06/24 20:57 Infused .Q1H1M STA Infusion Sodium Chloride Confirm 07/06/24 20:26 Sodium Chloride 0.9% 1000 Ml Administered 07/06/24 20:27 Dose 1,000 mls @ .ROUTE .[facility] Lab/Rad Data: Laboratory Result Diagrams 07/06/24 20:50 07/06/24 20:50 Laboratory Results 07/06/24 07/06/24 07/06/24 Range/Units Unknown 21:49 21:00 WBC (3.98-10.04) x10^3/uL RBC (3.93-5.22) x10^6/uL Hgb (11.2-15.7) g/dL Hct (34.1-44.9) % MCV (79.4-94.8) fL MCH (25.6-32.2) pg MCHC (32.2-35.5) g/dL RDW (11.7-14.4) % Plt Count (182-369) x10^3/uL MPV (9.4-12.3) fL Gran % (34.0-71.1) % Immature Gran % (Auto) (0.001-0.429) % Nucleat RBC Rel Count (0.00-0.2) % Eos # (Auto) (0.04-0.36) x10^3/uL Immature Gran # (Auto) (0.001-0.031) x10^3u/L Absolute Lymphs (auto) (1.18-3.74) x10^3/uL Absolute Monos (auto) (0.24-0.86) x10^3/uL Absolute Nucleated RBC (0.00-0.012) x10^3u/L Lymphocytes % (19.3-51.7) % Monocytes % (4.7-12.5) % Eosinophils % (0.7-5.8) % Basophils % (0.1-1.2) % Absolute Granulocytes (1.56-6.13) x10^3/uL Basophils # (0.01-0.08) x10^3/uL D-Dimer (0.0-0.50) mg/L Sodium (135-145) mmol/L Potassium (3.5-5.1) mmol/L Chloride (98-107) mmol/L Carbon Dioxide (22-30) mmol/L Anion Gap (5-15) MEQ/L BUN (7-17) mg/dL Creatinine (0.52-1.04) mg/dL Estimated GFR ML/MIN Glucose (74-106) mg/dL Calcium (8.4-10.2) mg/dL Magnesium (1.6-2.3) mg/dL Total Bilirubin (0.2-1.3) mg/dL AST (14-36) U/L ALT (0-35) U/L Alkaline Phosphatase (38-126) U/L Troponin I (0.000-0.033) ng/mL NT-Pro-B Natriuret Pep (<300) pg/mL Serum Total Protein (6.3-8.2) g/dL Albumin (3.5-5.0) g/dL Serum HCG, Qual NEGATIVE (NEGATIVE) Urine Color Yellow (Yellow) Urine Appearance Clear (Clear) Urine pH 6.0 (4.6-8.0) Ur Specific [place] 1.015 (1.005-1.030) Urine Protein 30 (Negative) Urine Glucose (UA) Negative (Negative) mg/dL Urine Ketones Negative (Negative) Urine Blood Negative (Negative) Urine Nitrite Positive A (Negative) Urine Bilirubin Negative (Negative) Urine Urobilinogen 0.2 (0.2) mg/dL Ur Leukocyte Esterase Small A (Negative) U Hyaline Cast (Auto) NONE SEEN (0-2) /LPF Urine Microscopic RBC 0-2 (0-5) /HPF Urine Microscopic WBC 21-50 A (0-5) /HPF Ur Epithelial Cells Rare (None Seen) /HPF Urine Bacteria Many A (None Seen) /HPF Urine Culture Reflexed YES (NO) Urine Opiates Level NEGATIVE (NEGATIVE) Ur Methadone NEGATIVE (NEGATIVE) Urine Barbiturates NEGATIVE (NEGATIVE) Ur Phencyclidine (PCP) NEGATIVE (NEGATIVE) Urine Amphetamine POSITIVE A (NEGATIVE) U Benzodiazepine Level NEGATIVE (NEGATIVE) Urine Cocaine NEGATIVE (NEGATIVE) Urine Marijuana (THC) POSITIVE A (NEGATIVE) Influenza Type A Ag (NEGATIVE) Influenza Type B Ag (NEGATIVE) RSV (PCR) (NEGATIVE) SARS-CoV-2 (PCR) (NEGATIVE) 07/06/24 07/06/24 07/06/24 Range/Units 21:00 20:50 20:50 WBC (3.98-10.04) x10^3/uL RBC (3.93-5.22) x10^6/uL Hgb (11.2-15.7) g/dL Hct (34.1-44.9) % MCV (79.4-94.8) fL MCH (25.6-32.2) pg MCHC (32.2-35.5) g/dL RDW (11.7-14.4) % Plt Count (182-369) x10^3/uL MPV (9.4-12.3) fL Gran % (34.0-71.1) % Immature Gran % (Auto) (0.001-0.429) % Nucleat RBC Rel Count (0.00-0.2) % Eos # (Auto) (0.04-0.36) x10^3/uL Immature Gran # (Auto) (0.001-0.031) x10^3u/L Absolute Lymphs (auto) (1.18-3.74) x10^3/uL Absolute Monos (auto) (0.24-0.86) x10^3/uL Absolute Nucleated RBC (0.00-0.012) x10^3u/L Lymphocytes % (19.3-51.7) % Monocytes % (4.7-12.5) % Eosinophils % (0.7-5.8) % Basophils % (0.1-1.2) % Absolute Granulocytes (1.56-6.13) x10^3/uL Basophils # (0.01-0.08) x10^3/uL D-Dimer 0.46 (0.0-0.50) mg/L Sodium (135-145) mmol/L Potassium (3.5-5.1) mmol/L Chloride (98-107) mmol/L Carbon Dioxide (22-30) mmol/L Anion Gap (5-15) MEQ/L BUN (7-17) mg/dL Creatinine (0.52-1.04) mg/dL Estimated GFR ML/MIN Glucose (74-106) mg/dL Calcium (8.4-10.2) mg/dL Magnesium (1.6-2.3) mg/dL Total Bilirubin (0.2-1.3) mg/dL AST (14-36) U/L ALT (0-35) U/L Alkaline Phosphatase (38-126) U/L Troponin I 0.017 (0.000-0.033) ng/mL NT-Pro-B Natriuret Pep (<300) pg/mL Serum Total Protein (6.3-8.2) g/dL Albumin (3.5-5.0) g/dL Serum HCG, Qual (NEGATIVE) Urine Color (Yellow) Urine Appearance (Clear) Urine pH (4.6-8.0) Ur Specific [place] (1.005-1.030) Urine Protein (Negative) Urine Glucose (UA) (Negative) mg/dL Urine Ketones (Negative) Urine Blood (Negative) Urine Nitrite (Negative) Urine Bilirubin (Negative) Urine Urobilinogen (0.2) mg/dL Ur Leukocyte Esterase (Negative) U Hyaline Cast (Auto) (0-2) /LPF Urine Microscopic RBC (0-5) /HPF Urine Microscopic WBC (0-5) /HPF Ur Epithelial Cells (None Seen) /HPF Urine Bacteria (None Seen) /HPF Urine Culture Reflexed (NO) Urine Opiates Level (NEGATIVE) Ur Methadone (NEGATIVE) Urine Barbiturates (NEGATIVE) Ur Phencyclidine (PCP) (NEGATIVE) Urine Amphetamine (NEGATIVE) U Benzodiazepine Level (NEGATIVE) Urine Cocaine (NEGATIVE) Urine Marijuana (THC) (NEGATIVE) Influenza Type A Ag NEGATIVE (NEGATIVE) Influenza Type B Ag NEGATIVE (NEGATIVE) RSV (PCR) NEGATIVE (NEGATIVE) SARS-CoV-2 (PCR) NEGATIVE (NEGATIVE) 07/06/24 07/06/24 Range/Units 20:50 20:50 WBC 4.5 (3.98-10.04) x10^3/uL RBC 4.09 (3.93-5.22) x10^6/uL Hgb 8.5 L (11.2-15.7) g/dL Hct 29.3 L (34.1-44.9) % MCV 71.6 L (79.4-94.8) fL MCH 20.8 L (25.6-32.2) pg MCHC 29.0 L (32.2-35.5) g/dL RDW 18.6 H (11.7-14.4) % Plt Count 282 (182-369) x10^3/uL MPV 8.8 L (9.4-12.3) fL Gran % 64.1 (34.0-71.1) % Immature Gran % (Auto) 0.2 (0.001-0.429) % Nucleat RBC Rel Count 0.0 (0.00-0.2) % Eos # (Auto) 0.02 L (0.04-0.36) x10^3/uL Immature Gran # (Auto) 0.01 (0.001-0.031) x10^3u/L Absolute Lymphs (auto) 1.00 L (1.18-3.74) x10^3/uL Absolute Monos (auto) 0.58 (0.24-0.86) x10^3/uL Absolute Nucleated RBC 0.00 (0.00-0.012) x10^3u/L Lymphocytes % 22.2 (19.3-51.7) % Monocytes % 12.9 H (4.7-12.5) % Eosinophils % 0.4 L (0.7-5.8) % Basophils % 0.2 (0.1-1.2) % Absolute Granulocytes 2.89 (1.56-6.13) x10^3/uL Basophils # 0.01 (0.01-0.08) x10^3/uL D-Dimer (0.0-0.50) mg/L Sodium 137 (135-145) mmol/L Potassium 3.7 (3.5-5.1) mmol/L Chloride 112 H (98-107) mmol/L Carbon Dioxide 20 L (22-30) mmol/L Anion Gap 8.3 (5-15) MEQ/L BUN 21 H (7-17) mg/dL Creatinine 1.01 (0.52-1.04) mg/dL Estimated GFR 68.2 ML/MIN Glucose 70 L (74-106) mg/dL Calcium 7.8 L (8.4-10.2) mg/dL Magnesium 1.9 (1.6-2.3) mg/dL Total Bilirubin 0.20 (0.2-1.3) mg/dL AST 55 H (14-36) U/L ALT 29 (0-35) U/L Alkaline Phosphatase 68 (38-126) U/L Troponin I (0.000-0.033) ng/mL NT-Pro-B Natriuret Pep 115 (<300) pg/mL Serum Total Protein 5.8 L (6.3-8.2) g/dL Albumin 3.2 L (3.5-5.0) g/dL Serum HCG, Qual (NEGATIVE) Urine Color (Yellow) Urine Appearance (Clear) Urine pH (4.6-8.0) Ur Specific [place] (1.005-1.030) Urine Protein (Negative) Urine Glucose (UA) (Negative) mg/dL Urine Ketones (Negative) Urine Blood (Negative) Urine Nitrite (Negative) Urine Bilirubin (Negative) Urine Urobilinogen (0.2) mg/dL Ur Leukocyte Esterase (Negative) U Hyaline Cast (Auto) (0-2) /LPF Urine Microscopic RBC (0-5) /HPF Urine Microscopic WBC (0-5) /HPF Ur Epithelial Cells (None Seen) /HPF Urine Bacteria (None Seen) /HPF Urine Culture Reflexed (NO) Urine Opiates Level (NEGATIVE) Ur Methadone (NEGATIVE) Urine Barbiturates (NEGATIVE) Ur Phencyclidine (PCP) (NEGATIVE) Urine Amphetamine (NEGATIVE) U Benzodiazepine Level (NEGATIVE) Urine Cocaine (NEGATIVE) Urine Marijuana (THC) (NEGATIVE) Influenza Type A Ag (NEGATIVE) Influenza Type B Ag (NEGATIVE) RSV (PCR) (NEGATIVE) SARS-CoV-2 (PCR) (NEGATIVE) - Progress Progress: improved, re-examined Air Movement: good Progress Note: 07/07/24 00:59 49-year-old is evaluated in the ER for palpitations since yesterday without chest pain or shortness of breath. She is given fluids, feeling better on reevaluation. EKG is sinus rhythm with no acute ischemic changes and negative troponins x 2. Chest x-ray is negative for any acute cardiopulmonary findings reviewed by me, official report is pending. Normal white count, chronic anemia with a stable H&H. Chemistries no acute renal failure. She does have UTI and started on Cipro. Does not have any flank tenderness or abdominal pain. She does have positive amphetamines and marijuana in her urine but patient denies use of amphetamines. She is thoroughly counseled, patient was very upset with the fact that she has a positive amphetamine in her system. I believe her symptoms are secondary to substance abuse. She is advised to follow-up with her construction representative, discussed signs symptoms of worsening needing return to ER which she seems understanding, stable for discharge. 07/07/24 01:00 Blood Culture(s) Obtained: No Antibiotics given: Yes Counseled pt/family regarding: lab results, diagnosis, need for follow-up, rad results Medical Desision Making - Diagnostic Testing Diagnostic test were ordered, analyzed, and reviewed by me: Yes Radiological Interpretation: Interpreted by me, Reviewed by me - Risk of complications The pt has a mod risk of morbidity or mortality based on: Need for prescription drug management - Departure Departure Disposition: Home Clinical Impression: Palpitations, Substance abuse, Acute UTI (urinary tract infection) Condition: Stable Critical Care Time: No Referrals: JULI MONAHAN MD [Primary Care Provider] - Follow up with PCP 1 day SUZI BORRERO [CONSULTING PHYSICIAN] - Follow up/PCP as directed (Call for appointment for eval) Instructions: Palpitations ED Additional Instructions: Drink plenty of fluids. Do not smoke. Follow-up with primary care and card iology for reevaluation. Return to ER for worsening of palpitations or if having chest pain, difficulty breathing/if develop fever chills/flank pain etc. Forms: Work/School Release Form Prescriptions: Ciprofloxacin [Cipro 500 MG] 500 mg PO BID #14 tablet
[2024-07-06] MEDS ORDERED: Sodium Chloride 0.9% 1000 ML 1,000 ML ONE (20:26)
[2024-07-06] MEDS: Sodium Chloride 0.9% 1000 ML 1,000 ML IV STA (20:30)
[2024-07-06 20:50] LABS: Absolute Neutrophil Ct (ANC) 2.89 x10^3/uL (1.56-6.13); BASOPHIL % 0.2 % (0.1-1.2); Basophil (Absolute #) 0.01 x10^3/uL (0.01-0.08); Eosinophil % 0.4 % (0.7-5.8); Eosinophil (Absolute #) 0.02 x10^3/uL (0.04-0.36); Hematocrit 29.3 % (34.1-44.9); Hemoglobin 8.5 g/dL (11.2-15.7); IMMATURE GRAN # 0.01 x10^3u/L (0.001-0.031); IMMATURE GRAN % 0.2 % (0.001-0.429); Lymphocytes % 22.2 % (19.3-51.7); Mean Cell Volume 71.6 fL (79.4-94.8); Mean Corpuscular Hemoglobin 20.8 pg (25.6-32.2); Mean Platelet Volume 8.8 fL (9.4-12.3); Monocyte (Absolute #) 0.58 x10^3/uL (0.24-0.86); Monocytes % 12.9 % (4.7-12.5); Neutrophil % 64.1 % (34.0-71.1); Platelet Count 282 x10^3/uL (182-369); Red Blood Count 4.09 x10^6/uL (3.93-5.22); Red Cell Distribution Width 18.6 % (11.7-14.4); White Blood Count 4.5 x10^3/uL (3.98-10.04)
[2024-07-06 21:03] LABS: HCG SERUM TEST NEGATIVE (NEGATIVE)
[2024-07-06 21:13] LABS: ALBUMIN 3.2 g/dL (3.5-5.0); ANION GAP 8.3 MEQ/L (5-15); BILIRUBIN,TOTAL 0.2 mg/dL (0.2-1.3); Calcium 7.8 mg/dL (8.4-10.2); Creatinine 1 1.01 mg/dL (0.52-1.04); EST GLOMERULAR FILTRATION RATE 68.2 ML/MIN; MAGNESIUM 1.9 mg/dL (1.6-2.3); Potassium 3.7 mmol/L (3.5-5.1); Total Protein 5.8 g/dL (6.3-8.2)
[2024-07-06 21:32] LABS: INFLUENZA A NEGATIVE (NEGATIVE); INFLUENZA B NEGATIVE (NEGATIVE); RESPIRATORY SYNCTIAL VIRUS NEGATIVE (NEGATIVE); SARS-CoV-2 Xpert Express NEGATIVE (NEGATIVE)
[2024-07-06 22:15] LABS: Appearance Clear (Clear); Bacteria Many /HPF (None Seen); Bilirubin Negative (Negative); Blood Negative (Negative); Epithelial Cells Rare /HPF (None Seen); Glucose, Urine Negative (Negative); Hyaline Casts NONE SEEN /LPF (0-2); Ketones Negative (Negative); Leukocyte Esterase Small (Negative); Nitrite Positive (Negative); Protein,Urine Dip 30 (Negative); RBC 0-2 /HPF (0-5); Specific Gravity 1.015 (1.005-1.030); Urobilinogen 0.2 mg/dL (0.2); WBC 21-50 /HPF (0-5)
[2024-07-06 22:25] LABS: Barbiturate,Urine NEGATIVE (NEGATIVE); Benzodiazepine,Urine NEGATIVE (NEGATIVE); Cocaine,Urine NEGATIVE (NEGATIVE); Methadone,Urine NEGATIVE (NEGATIVE); Opiate,Urine NEGATIVE (NEGATIVE); PCP,Urine NEGATIVE (NEGATIVE); THC,Urine POSITIVE (NEGATIVE)
[2024-07-06 22:28] LABS: Amphetamine,Urine POSITIVE (NEGATIVE)
[2024-07-07 00:13] VITALS: BP 160/96; PULSE 74; RESP 21
[2024-07-07 00:21] VITALS: O2SAT 100
[2024-07-07] MEDS ORDERED: Cipro 500 MG ONE (00:49)
[2024-07-07] MEDS: Cipro 500 MG PO STA (00:51)
--- NOTE | 2024-07-07 08:17 | XRAY ---
Indication: Palpitations. Comparison: June 19, 2026 Portable chest remains clear again with COPD. Heart not enlarged. Bony thorax intact again with cervical fusion hardware. No new/acute findings.
== END 2024-07-07 01:25 | disposition home or self-care (01) ==
LOC: ED 19:50
DX: R00.2 Palpitations (principal); F15.10 Other stimulant abuse, uncomplicated; F12.10 Cannabis abuse, uncomplicated; N39.0 Urinary tract infection, site not specified; M79.10 Myalgia, unspecified site; I10 Essential (primary) hypertension; Z79.899 Other long term (current) drug therapy; Z72.0 Tobacco use
CPT/HCPCS: 0241U; 36415; 71045; 80053; 80307; 81001; 83735; 83880; 84484; 84703; 85025; 85379; 87077; 87086; 87186; 93005; 93041; 96360; 99284; A9270-GY

== ENCOUNTER 2025-02-19 19:49 | Emergency (ER) | payer MEDICARE ==
[2025-02-19 20:17] VITALS: TEMP 98.2
--- NOTE | 2025-02-19 20:35 | ERPHSYRPT ---
- History of Present Illness Time Seen by Provider: 02/19/25 20:29 Source: patient Exam Limitations: no limitations Patient Subjective Stated Complaint: pt states that she has been having abd pain and bodyaches Triage Nursing Assessment: pt came into the er via wheelchair; pt transfer to cot per self; axo x4; c/o abd pain; pt states 7/10 pain to abd; active bowel sounds in all quads; c/o N/D, denies vomiting; skin PDW; no respiratory distress present; vitals wnl Physician History: Patient is a 49-year-old female current smoker history of seizures, asthma, bowel obstruction with a ileostomy, hepatitis, liver cirrhosis presents to our ED for evaluation of generalized bodyaches, cramps and generalized abdominal pain. Symptoms started yesterday and has progressed. Patient rates her pain 7 out of 10. Patient reports that she has a history of "low potassium". Patient also adds that she has a history of anemia. The source was believed to be a gastric or duodenal ulcer. Patient concerned with her hemoglobin level at this time. Patient adds that she feels slightly nauseous and has diarrhea. Otherwise no vomiting no rash no fever. Significant other at bedside. They voiced no other complaints or concerns at this time Timing/Duration: yesterday Severity: moderate Modifying Factors: Improves With: nothing Associated Symptoms: denies symptoms Allergies/Adverse Reactions: cephalexin monohydrate [From Keflex] Allergy (Mild, Verified 02/19/25 20:04) Blisters clindamycin Allergy (Mild, Verified 02/19/25 20:04) Blisters Penicillins Allergy (Mild, Verified 02/19/25 20:04) Blisters nitrofurantoin [From Furadantin] Allergy (Verified 02/19/25 20:04) morphine Adverse Reaction (Intermediate, Verified 02/19/25 20:04) Headache Home Medications: lisinopriL [Lisinopril] 20 mg PO DAILY 09/07/14 [History] Hydroxyzine HCl 25 mg [Atarax 25 mg] 25 mg PO Q8HPRN PRN 02/12/24 [History] Nitroglycerin 0.4 mg Tablet [Nitrostat 0.4 MG Tablet] 0.4 mg SL Q5MIN PRN MR X 3 PRN 02/12/24 [History] Amlodipine Besylate 10 mg PO DAILY 02/19/25 [History] Atorvastatin Calcium 20 mg PO DAILY 02/19/25 [History] Ferrous Sulfate 325 mg [Feosol 325 mg] 325 mg PO DAILY 02/19/25 [History] Fluconazole 400 mg PO DAILY 02/19/25 [History] Fluticasone/Umeclidin/Vilanter [Trelegy Ellipta 100-62.5-25] 1 puff IH DAILY 02/19/25 [History] Isosorbide Mononitrate 60 mg [Imdur 60MG] 60 mg PO DAILY 02/19/25 [History] Metoprolol Succinate [Toprol Xl] 100 mg PO DAILY 02/19/25 [History] PANTOPRAZOLE 40 mg Tablet [Protonix 40MG Tablet] 40 mg PO BID 02/19/25 [History] Hx Tetanus, Diphtheria Vaccination/Date Given: Yes Hx Influenza Vaccination/Date Given: No Hx Pneumococcal Vaccination/Date Given: No Travel Risk - International Travel Have you traveled outside of the country in past 3 weeks: No - Emerging Infectious Disease Are you exhibiting symptoms associated with any current EIDs: Yes Symptoms: Abdominal Pain, Headaches/Body Aches/ - Review of Systems All Other Systems: Reviewed and Negative - Past Medical History Pertinent Past Medical History: Yes Neurological History: Migraines, Seizures ENT History: No Pertinent History Cardiac History: Hypertension Respiratory History: Asthma Endocrine Medical History: No Pertinent History Musculoskeletal History: No Pertinent History GI Medical History: Other, Hepatitis, Cirrhosis History: Other Psycho-Social History: Depression Female Reproductive Disorders: Other Other Medical History: 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 WHICH LED TO TOTAL HYSTERECTOMY ET 10% OF STOMACHE LEFT, NEUROGENIC BLADDER ET BOWEL, SPINA BIFIDA - Past Surgical History Past Surgical History: Yes Neuro Surgical History: No Pertinent History Cardiac: No Pertinent History Respiratory: No Pertinent History Gastrointestinal: Bowel Surgery Genitourinary: Other Musculoskeletal: No Pertinent History Female Surgical History: Hysterectomy, Section Other Surgical History: tumor removal, Iliostomy, gastric bypass - Female History Hx Last Menstrual Period: HYSTER Hx Now: No - Social History Smoking Status: Current every day smoker How long have you smoked: 30 years Exposure to second hand smoke: Yes Drug Use: marijuana - Social Determinants of Health Will the patient participate in the screening: Yes Do you worry about a steady place to live?: No Do you have any problems with any of the following?: No known problems In the past 12 months,have you had to go without utilities?: No Transportation Issues: No Has anyone in your support network made you feel unsafe?: No Have you or anyone in your house had to go w/o enough food: No - Nursing Vital Signs Nursing Vital Signs: Initial Vital Signs Temperature 98.2 F 02/19/25 20:16 Pulse Rate 82 02/19/25 20:16 Respiratory Rate 20 02/19/25 20:16 Blood Pressure 116/66 02/19/25 20:16 O2 Sat by Pulse Oximetry 97 02/19/25 20:16 Pain Scale Pain Intensity 0 - Physical Exam General Appearance: no apparent distress, alert, other (Patient appears pale) Eye Exam: PERRL/EOMI Ears, Nose, Throat Exam: normal ENT inspection, moist mucous membranes Neck Exam: normal inspection, non-tender, supple, full range of motion Respiratory Exam: normal breath sounds, lungs clear, airway intact, No respiratory distress Cardiovascular Exam: regular rate/rhythm, normal heart sounds, normal peripheral pulses Gastrointestinal/Abdomen Exam: soft, normal bowel sounds, tenderness (Mild diffuse abdominal tenderness. No focal pain), No mass Back Exam: normal inspection, normal range of motion, No CVA tenderness, No vertebral tenderness Extremity Exam: normal inspection, normal range of motion, pelvis stable Neurologic Exam: alert, oriented x 3, cooperative, normal mood/affect, sensation nml, No motor deficits Skin Exam: normal color, warm, dry, No rash Lymphatic Exam: No adenopathy SpO2 Interpretation: normal SpO2: 97 O2 Delivery: Room Air - Course Nursing assessment & vital signs reviewed: Yes - CT Exams Abdomen/Pelvis CT Interpretation: Tele-radiologist Report (No change compared to 02/14/2024 again with chronic findings no new acute findings) Ordered Tests: Active Orders 24 hr Category Date Time Status IV Insertion STAT Care 02/19/25 20:28 Active ABDOMEN AND PELVIS W/0 CONTRAS [CT] Stat Exams 02/19/25 20:31 Taken CBC W DIFF Stat Lab 02/19/25 20:40 Completed CMP Stat Lab 02/19/25 20:40 Completed CMP Stat Lab 02/20/25 00:20 Completed CMP Stat Lab 02/20/25 03:34 Completed CULTURE,URINE Stat Lab 02/19/25 23:28 Received LIPASE Stat Lab 02/19/25 20:40 Completed POCT GLUCOSE Stat Lab 02/19/25 22:50 Completed TROPONIN Q4H Lab 02/19/25 20:40 Completed TROPONIN Q4H Lab 02/20/25 00:20 Completed TROPONIN Q4H Lab 02/20/25 03:00 Received UA W/RFX UR CULTURE Stat Lab 02/19/25 23:28 Completed Medication Summary Generic Name Dose Route Start Last Admin Trade Name Freq PRN Reason Stop Dose Admin Sodium Chloride 1,000 mls @ 100 mls/hr 02/19/25 20:30 02/19/25 23:26 Sodium Chloride 0.9% 1000 Ml IV 03/21/25 20:29 Infused .Q10H MAREK Infusion Discontinued Medications Generic Name Dose Route Start Last Admin Trade Name Freq PRN Reason Stop Dose Admin Acetaminophen 100 mls @ 400 mls/hr 02/19/25 20:32 02/19/25 21:05 Ofirmev IV 02/19/25 20:46 Infused STAT ONE Infusion Acetaminophen Confirm 02/19/25 20:37 Ofirmev Administered 02/19/25 20:38 Dose 100 mls @ ud IV .STK-MED ONE Levofloxacin/Dextrose 500 mg in 100 mls @ 100 mls/hr 02/20/25 00:39 02/20/25 01:43 Levofloxacin 500mg/100ml D5w IV 02/20/25 01:38 Infused STAT STA Infusion Levofloxacin/Dextrose Confirm 02/20/25 00:42 Levofloxacin 500mg/100ml D5w Administered 02/20/25 00:43 Dose 500 mg in 100 mls @ ud IV .STK-MED ONE Sodium Chloride 1,000 mls @ 999 mls/hr 02/20/25 01:15 02/20/25 02:53 Sodium Chloride 0.9% 1000 Ml IV 02/20/25 02:15 Infused .Q1H1M STA Infusion Ondansetron HCl 4 mg 02/19/25 20:35 02/19/25 20:40 Ondansetron Hcl 4 Mg/2 Ml Vial IV 02/19/25 20:36 4 mg STAT ONE Administration Ondansetron HCl Confirm 02/19/25 20:37 Ondansetron Hcl 4 Mg/2 Ml Vial Administered 02/19/25 20:38 Dose 4 mg .ROUTE .STK-MED ONE Lab/Rad Data: Laboratory Result Diagrams 02/19/25 20:40 02/20/25 03:34 Laboratory Results 02/20/25 02/20/25 02/20/25 Range/Units 03:34 00:20 00:20 WBC (3.98-10.04) x10^3/uL RBC (3.93-5.22) x10^6/uL Hgb (11.2-15.7) g/dL Hct (34.1-44.9) % MCV (79.4-94.8) fL MCH (25.6-32.2) pg MCHC (32.2-35.5) g/dL RDW (11.7-14.4) % Plt Count (182-369) x10^3/uL MPV (9.4-12.3) fL Gran % (34.0-71.1) % Immature Gran % (Auto) (0.001-0.429) % Nucleat RBC Rel Count (0.00-0.2) % Eos # (Auto) (0.04-0.36) x10^3/uL Immature Gran # (Auto) (0.001-0.031) x10^3u/L Absolute Lymphs (auto) (1.18-3.74) x10^3/uL Absolute Monos (auto) (0.24-0.86) x10^3/uL Absolute Nucleated RBC (0.00-0.012) x10^3u/L Lymphocytes % (19.3-51.7) % Monocytes % (4.7-12.5) % Eosinophils % (0.7-5.8) % Basophils % (0.1-1.2) % Absolute Granulocytes (1.56-6.13) x10^3/uL Basophils # (0.01-0.08) x10^3/uL Sodium 135 134 L (135-145) mmol/L Potassium 5.2 H 5.2 H (3.5-5.1) mmol/L Chloride 110 H 109 H (98-107) mmol/L Carbon Dioxide 22 21 L (22-30) mmol/L Anion Gap 8.4 9.3 (5-15) MEQ/L BUN 28 H 31 H (7-17) mg/dL Creatinine 1.03 1.25 H (0.52-1.04) mg/dL Estimated GFR 66.7 52.8 ML/MIN Glucose 83 82 (74-106) mg/dL POC Glucometer (74 to 106) mg/dL Calcium 7.9 L 8.1 L (8.4-10.2) mg/dL Total Bilirubin < 0.10 L < 0.10 L (0.2-1.3) mg/dL AST 50 H 44 H (14-36) U/L ALT 48 H 46 H (0-35) U/L Alkaline Phosphatase 69 68 (38-126) U/L Troponin I < 0.012 (0.000-0.033) ng/mL Serum Total Protein 5.4 L 5.4 L (6.3-8.2) g/dL Albumin 2.9 L 3.0 L (3.5-5.0) g/dL Lipase (23-300) U/L Urine Color (Yellow) Urine Appearance (Clear) Urine pH (4.6-8.0) Ur Specific Clarence (1.005-1.030) Urine Protein (Negative) Urine Glucose (UA) (Negative) mg/dL Urine Ketones (Negative) Urine Blood (Negative) Urine Nitrite (Negative) Urine Bilirubin (Negative) Urine Urobilinogen (0.2) mg/dL Ur Leukocyte Esterase (Negative) U Hyaline Cast (Auto) (0-2) /LPF Urine Microscopic RBC (0-5) /HPF Urine Microscopic WBC (0-5) /HPF Ur Epithelial Cells (None Seen) /HPF Urine Bacteria (None Seen) /HPF Urine Culture Reflexed (NO) Influenza Type A Ag (NEGATIVE) Influenza Type B Ag (NEGATIVE) RSV (PCR) (NEGATIVE) SARS-CoV-2 (PCR) (NEGATIVE) 02/19/25 02/19/25 02/19/25 Range/Units 23:28 22:50 20:42 WBC (3.98-10.04) x10^3/uL RBC (3.93-5.22) x10^6/uL Hgb (11.2-15.7) g/dL Hct (34.1-44.9) % MCV (79.4-94.8) fL MCH (25.6-32.2) pg MCHC (32.2-35.5) g/dL RDW (11.7-14.4) % Plt Count (182-369) x10^3/uL MPV (9.4-12.3) fL Gran % (34.0-71.1) % Immature Gran % (Auto) (0.001-0.429) % Nucleat RBC Rel Count (0.00-0.2) % Eos # (Auto) (0.04-0.36) x10^3/uL Immature Gran # (Auto) (0.001-0.031) x10^3u/L Absolute Lymphs (auto) (1.18-3.74) x10^3/uL Absolute Monos (auto) (0.24-0.86) x10^3/uL Absolute Nucleated RBC (0.00-0.012) x10^3u/L Lymphocytes % (19.3-51.7) % Monocytes % (4.7-12.5) % Eosinophils % (0.7-5.8) % Basophils % (0.1-1.2) % Absolute Granulocytes (1.56-6.13) x10^3/uL Basophils # (0.01-0.08) x10^3/uL Sodium (135-145) mmol/L Potassium (3.5-5.1) mmol/L Chloride (98-107) mmol/L Carbon Dioxide (22-30) mmol/L Anion Gap (5-15) MEQ/L BUN (7-17) mg/dL Creatinine (0.52-1.04) mg/dL Estimated GFR ML/MIN Glucose (74-106) mg/dL POC Glucometer 112 H (74 to 106) mg/dL Calcium (8.4-10.2) mg/dL Total Bilirubin (0.2-1.3) mg/dL AST (14-36) U/L ALT (0-35) U/L Alkaline Phosphatase (38-126) U/L Troponin I (0.000-0.033) ng/mL Serum Total Protein (6.3-8.2) g/dL Albumin (3.5-5.0) g/dL Lipase (23-300) U/L Urine Color Yellow (Yellow) Urine Appearance Cloudy A (Clear) Urine pH 6.0 (4.6-8.0) Ur Specific Clarence 1.015 (1.005-1.030) Urine Protein Negative (Negative) Urine Glucose (UA) Negative (Negative) mg/dL Urine Ketones Negative (Negative) Urine Blood Negative (Negative) Urine Nitrite Negative (Negative) Urine Bilirubin Negative (Negative) Urine Urobilinogen 0.2 (0.2) mg/dL Ur Leukocyte Esterase Moderate A (Negative) U Hyaline Cast (Auto) 3-5 A (0-2) /LPF Urine Microscopic RBC 6-10 A (0-5) /HPF Urine Microscopic WBC 21-50 A (0-5) /HPF Ur Epithelial Cells None Seen (None Seen) /HPF Urine Bacteria Many A (None Seen) /HPF Urine Culture Reflexed YES (NO) Influenza Type A Ag NEGATIVE (NEGATIVE) Influenza Type B Ag NEGATIVE (NEGATIVE) RSV (PCR) NEGATIVE (NEGATIVE) SARS-CoV-2 (PCR) NEGATIVE (NEGATIVE) 02/19/25 02/19/25 02/19/25 Range/Units 20:40 20:40 20:40 WBC 9.5 (3.98-10.04) x10^3/uL RBC 3.59 L (3.93-5.22) x10^6/uL Hgb 10.3 L (11.2-15.7) g/dL Hct 33.9 L (34.1-44.9) % MCV 94.4 (79.4-94.8) fL MCH 28.7 (25.6-32.2) pg MCHC 30.4 L (32.2-35.5) g/dL RDW 17.1 H (11.7-14.4) % Plt Count 355 (182-369) x10^3/uL MPV 9.1 L (9.4-12.3) fL Gran % 58.5 (34.0-71.1) % Immature Gran % (Auto) 0.4 (0.001-0.429) % Nucleat RBC Rel Count 0.0 (0.00-0.2) % Eos # (Auto) 0.10 (0.04-0.36) x10^3/uL Immature Gran # (Auto) 0.04 H (0.001-0.031) x10^3u/L Absolute Lymphs (auto) 2.35 (1.18-3.74) x10^3/uL Absolute Monos (auto) 1.39 H (0.24-0.86) x10^3/uL Absolute Nucleated RBC 0.00 (0.00-0.012) x10^3u/L Lymphocytes % 24.8 (19.3-51.7) % Monocytes % 14.7 H (4.7-12.5) % Eosinophils % 1.1 (0.7-5.8) % Basophils % 0.5 (0.1-1.2) % Absolute Granulocytes 5.55 (1.56-6.13) x10^3/uL Basophils # 0.05 (0.01-0.08) x10^3/uL Sodium 134 L (135-145) mmol/L Potassium 5.3 H (3.5-5.1) mmol/L Chloride 109 H (98-107) mmol/L Carbon Dioxide 22 (22-30) mmol/L Anion Gap 7.7 (5-15) MEQ/L BUN 31 H (7-17) mg/dL Creatinine 1.37 H (0.52-1.04) mg/dL Estimated GFR 47.3 ML/MIN Glucose 63 L (74-106) mg/dL POC Glucometer (74 to 106) mg/dL Calcium 8.6 (8.4-10.2) mg/dL Total Bilirubin 0.10 L (0.2-1.3) mg/dL AST 50 H (14-36) U/L ALT 52 H (0-35) U/L Alkaline Phosphatase 73 (38-126) U/L Troponin I < 0.012 (0.000-0.033) ng/mL Serum Total Protein 5.7 L (6.3-8.2) g/dL Albumin 3.4 L (3.5-5.0) g/dL Lipase 244 (23-300) U/L Urine Color (Yellow) Urine Appearance (Clear) Urine pH (4.6-8.0) Ur Specific Clarence (1.005-1.030) Urine Protein (Negative) Urine Glucose (UA) (Negative) mg/dL Urine Ketones (Negative) Urine Blood (Negative) Urine Nitrite (Negative) Urine Bilirubin (Negative) Urine Urobilinogen (0.2) mg/dL Ur Leukocyte Esterase (Negative) U Hyaline Cast (Auto) (0-2) /LPF Urine Microscopic RBC (0-5) /HPF Urine Microscopic WBC (0-5) /HPF Ur Epithelial Cells (None Seen) /HPF Urine Bacteria (None Seen) /HPF Urine Culture Reflexed (NO) Influenza Type A Ag (NEGATIVE) Influenza Type B Ag (NEGATIVE) RSV (PCR) (NEGATIVE) SARS-CoV-2 (PCR) (NEGATIVE) - Progress Progress: improved Progress Note: Patient is a 49-year-old female current smoker history of seizures, asthma, bowel obstruction with a ileostomy, hepatitis, liver cirrhosis presents to our ED for evaluation of generalized bodyaches, cramps and generalized abdominal pain. CT abdomen pelvis negative for acute intra-abdominal pathology. Patient has a normocytic anemia with a hemoglobin of 10.3. Potassium 5.3. Acute renal injury with a creatinine of 1.37. Acute renal injury likely secondary to prerenal/volume depletion/dehydration. Previous creatinine was 0.74. We will administer IV fluids and redraw labs to assess potassium and kidney function. Hypoglycemia of serum glucose is 63 observed on labs. Patient will be given something to eat. Glucose 112. IV fluids administered. Repeat chemistry reveals improvement of kidney function. Potassium improved to 5.2. Patient received a second liter of fluids. Kidney function normalized. Potassium stable at 5.2. 5.1 is normal. Will discharge patient home. Patient agrees to follow-up with primary care doctor within 48 hours for reevaluation. UA significant for urinary tract infection. Patient received an IV dose of Levaquin. A prescription for Levaquin forwarded to patient's pharmacy. Patient reassessed. Cramping resolved. Patient asymptomatic resting comfortably without any complaints. Significant other at bedside. They voiced no other complaints or concerns. They agree to follow-up with primary care doctor within 48 hours for reevaluation. History obtained from patient and her significant other who is at the bedside. Differential diagnosis includes dehydration, acute renal injury, viral syndrome, electrolyte abnormality Portions of this note were created with voice recognition technology. There may be grammatical, spelling, punctuation or sound alike errors Complexity of problem addressed is moderate acute complicated. No critical care time. Complexity of data reviewed and analyzed is moderate. Test ordered test reviewed results analyzed and correlated clinically with history and physical exam. Risk of complication and or risk of morbidity/mortality of patient management is moderate. A prescription for Levaquin forwarded to patient's pharmacy. Vital stable. Time spent to discharge patient is approximately 15 minutes. Plan of care established for shared decision making. No social determinants of health present to impede follow-up. Portions of this note were created with voice recognition technology. There may be grammatical, spelling, punctuation or sound alike errors 02/19/25 22:21 02/20/25 04:11 Counseled pt/family regarding: lab results - Departure Departure Disposition: Home Clinical Impression: Hypoglycemia, Normocytic anemia, Hyperkalemia, Acute renal injury, UTI (urinary tract infection), Dehydration Condition: Stable Critical Care Time: No Referrals: JULI MONAHAN MD [Primary Care Provider, [facility]] - Follow up/PCP as directed Additional Instructions: Discharge/Care Plan IZZY HARKINS was seen on 02/20/25 in the Emergency Room. The patient was counseled regarding Diagnosis,Lab results, Imaging studies, need for follow up and when to return to the Emergency Room. Prescriptions given: Discharge Note I have spoken with the patient and/or caregivers. I have explained the patient's condition, diagnosis and treatment plan based on the information available to me at this time. I have answered the patient's and/or caregiver's questions and addressed any concerns. The patient and/or caregivers have as good understanding of the patient's diagnosis, condition and treatment plan as can be expected at this point. The vital signs have been stable. The patient's condition is stable and appropriate for discharge from the emergency department. The patient will pursue further outpatient evaluation with the primary care physician or other designated or consulting physician as outlined in the discharge instructions. The patient and/or caregivers are agreeable to this plan of care and follow-up instructions have been explained in detail. The patient and/or caregivers have received these instruction. The patient/and or caregivers are aware that any significant change in condition or worsening of symptoms should prompt an immediate return to this or the closest emergency department or call 911. Prescriptions: Levofloxacin [Levaquin 500 MG Tablet] 500 mg PO DAILY 7 Days #7 tablet
[2025-02-19] MEDS ORDERED: OFIRMEV 100 ML IV ONE (20:37)
[2025-02-19] MEDS ORDERED: Zofran 4 MG/2 ML VIAL ONE (20:37)
[2025-02-19] MEDS: Zofran 4 MG/2 ML VIAL IV ONE (20:40)
[2025-02-19] MEDS: OFIRMEV 100 ML IV ONE (20:41)
[2025-02-19 20:45] LABS: BASOPHIL % 0.5 % (0.1-1.2); Basophil (Absolute #) 0.05 x10^3/uL (0.01-0.08); Eosinophil (Absolute #) 0.10 x10^3/uL (0.04-0.36); Hematocrit 33.9 % (34.1-44.9); Hemoglobin 10.3 g/dL (11.2-15.7); IMMATURE GRAN # 0.04 x10^3u/L (0.001-0.031); IMMATURE GRAN % 0.4 % (0.001-0.429); Lymphocyte (Absolute #) 2.35 x10^3/uL (1.18-3.74); Mean Corpuscular Hemoglobin 28.7 pg (25.6-32.2); Mean Corpuscular Hgb Concent. 30.4 g/dL (32.2-35.5); Monocyte (Absolute #) 1.39 x10^3/uL (0.24-0.86); NUCLEATED RBC # 0.00 x10^3u/L (0.00-0.012); NUCLEATED RBC % 0.0 % (0.00-0.2); Platelet Count 355 x10^3/uL (182-369); Red Blood Count 3.59 x10^6/uL (3.93-5.22); White Blood Count 9.5 x10^3/uL (3.98-10.04)
[2025-02-19 21:00] LABS: Calcium 8.6 mg/dL (8.4-10.2); Carbon Dioxide 22.0 mmol/L (22-30); Creatinine 1 1.37 mg/dL (0.52-1.04); EST GLOMERULAR FILTRATION RATE 47.3 ML/MIN; Glucose 63.0 mg/dL (74-106); Potassium 5.3 mmol/L (3.5-5.1); SGOT/AST 50.0 U/L (14-36); SGPT/ALT 52.0 U/L (0-35); Total Protein 5.7 g/dL (6.3-8.2)
[2025-02-19 21:22] LABS: INFLUENZA A NEGATIVE (NEGATIVE); INFLUENZA B NEGATIVE (NEGATIVE); RESPIRATORY SYNCTIAL VIRUS NEGATIVE (NEGATIVE); SARS-CoV-2 Xpert Express NEGATIVE (NEGATIVE)
[2025-02-20 00:19] LABS: Glucose, Urine Negative (Negative); Protein,Urine Dip Negative (Negative); WBC 21-50 /HPF (0-5)
[2025-02-20 00:42] LABS: Calcium 8.1 mg/dL (8.4-10.2); Carbon Dioxide 21 mmol/L (22-30); Creatinine 1 1.25 mg/dL (0.52-1.04); EST GLOMERULAR FILTRATION RATE 52.8 ML/MIN; Glucose 82 mg/dL (74-106); Potassium 5.2 mmol/L (3.5-5.1); SGOT/AST 44 U/L (14-36); SGPT/ALT 46 U/L (0-35); Total Protein 5.4 g/dL (6.3-8.2)
[2025-02-20] MEDS ORDERED: Levofloxacin 500MG/100ML D5W 500 MG/100 ML BAG IV ONE (00:42)
[2025-02-20] MEDS: Levofloxacin 500MG/100ML D5W 500 MG/100 ML BAG IV STA (00:43)
[2025-02-20 03:22] VITALS: O2SAT 97
[2025-02-20 03:48] LABS: Calcium 7.9 mg/dL (8.4-10.2); Carbon Dioxide 22 mmol/L (22-30); Creatinine 1 1.03 mg/dL (0.52-1.04); EST GLOMERULAR FILTRATION RATE 66.7 ML/MIN; Glucose 83 mg/dL (74-106); Potassium 5.2 mmol/L (3.5-5.1); SGOT/AST 50 U/L (14-36); SGPT/ALT 48 U/L (0-35); Total Protein 5.4 g/dL (6.3-8.2)
[2025-02-20 04:13] VITALS: BP 110/68; PULSE 66; RESP 18
--- NOTE | 2025-02-20 08:41 | XRAY ---
Indication: Pain. Multiple contiguous axial images obtained through the abdomen and pelvis without contrast. Comparison: February 14, 2024 Lung bases again demonstrates pulmonary emphysema and minimal fibrosis/scarring. Heart not enlarged. Again gastric bypass surgery, right mid abdominal colostomy, hysterectomy, and cholecystectomy. Noncontrasted stomach and bowel loops appear nonobstructed. No free fluid/air. Urinary bladder again demonstrates mild circumferential wall thickening either incomplete distention versus cystitis. Remaining liver, pancreas, spleen, adrenal glands, kidneys, ureters, and bladder are unremarkable for noncontrast exam. Again moderate scattered arteriosclerotic calcifications without AAA. Osseous structures intact again with osteopenia, minimal degenerative changes throughout spine, tiny superior T12 Schmorl node, and chronic minimal anterior wedging T11. Again incidental chunky bilateral gluteal calcified injection granulomas. Impression: 1. Again urinary bladder wall thickening either incomplete distention versus cystitis. Correlate clinically. 2. Chronic findings including pulmonary emphysema, pulmonary fibrosis/scarring, postsurgical changes, arteriosclerotic disease, and chronic bony findings. 3. No new/acute findings on this noncontrast exam.
== END 2025-02-20 04:20 | disposition home or self-care (01) ==
LOC: ED 19:49
DX: D64.9 Anemia, unspecified (principal); E87.5 Hyperkalemia; N17.9 Acute kidney failure, unspecified; N39.0 Urinary tract infection, site not specified; E86.0 Dehydration; E16.2 Hypoglycemia, unspecified; M79.10 Myalgia, unspecified site; R10.84 Generalized abdominal pain; I10 Essential (primary) hypertension; Z79.899 Other long term (current) drug therapy; Z72.0 Tobacco use

== ENCOUNTER 2025-03-29 17:07 | Emergency (ER) | payer MEDICARE ==
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
[2025-03-29 17:25] VITALS: TEMP 98.3
[2025-03-29] MEDS ORDERED: PERCOCET TABLET 5/325MG ONE (17:37)
[2025-03-29] MEDS ORDERED: MOTRIN 600 MG ONE (17:37)
[2025-03-29] MEDS: PERCOCET TABLET 5/325MG PO STA (17:38)
[2025-03-29] MEDS: MOTRIN 600 MG PO ONE (17:38)
[2025-03-29 18:11] VITALS: O2SAT 98
[2025-03-29 19:04] VITALS: RESP 18
[2025-03-29] MEDS ORDERED: ZOFRAN ODT 4 MG ONE (19:26)
[2025-03-29] MEDS ORDERED: Hydromorphone 1 mg/ml Injection ONE (19:27)
[2025-03-29] MEDS: ZOFRAN ODT 4 MG PO ONE (19:28)
[2025-03-29] MEDS: Hydromorphone 1 mg/ml Injection IM ONE (19:28)
[2025-03-29 19:35] VITALS: BP 150/98; PULSE 70
--- NOTE | 2025-03-29 22:09 | XRAY ---
Indication: Fall injury. Comparison: None 2 view left femur demonstrates osteopenia and mild scattered vascular calcifications. Left hip demonstrates several small well-circumscribed round/oval radiopacities, not seen on crosstable lateral felt to be external. No acute abnormalities.
--- NOTE | 2025-03-29 22:09 | XRAY ---
Indication: Fall injury. Comparison: None AP/crosstable lateral left knee demonstrates moderate nonspecific effusion, osteopenia, and mild scattered vascular calcifications. No other bony, articular, or soft tissue abnormalities.
--- NOTE | 2025-03-29 22:11 | XRAY ---
Indication: Fall injury. Comparison: None 2 view left lower leg demonstrates osteopenia. No other bony, articular, or soft tissue abnormalities.
--- NOTE | 2025-03-29 22:11 | XRAY ---
Indication: Fall injury. Comparison: None 3 view left ankle demonstrates osteopenia and mild lateral soft tissue swelling. No other bony, articular, or soft tissue abnormalities.
--- NOTE | 2025-03-29 22:13 | XRAY ---
Indication: Fall injury. Comparison: None 3 nonweightbearing views left foot demonstrates osteopenia and hammertoe deformities of all phalanges. No other bony, articular, or soft tissue abnormalities.
== END 2025-03-29 19:43 | disposition home or self-care (01) ==
LOC: ED 17:07
DX: S89.92XA Unspecified injury of left lower leg, initial encounter (principal); V28.49XA Other motorcycle driver injured in noncollision transport accident in traffic accident, initial encounter; I10 Essential (primary) hypertension; Z79.891 Long term (current) use of opiate analgesic; Z79.899 Other long term (current) drug therapy; Z72.0 Tobacco use